=== PATIENT | female | born 1980 | race Caucasian/White ===

== ENCOUNTER 2020-05-16 05:18 | Emergency (ER) | payer OTHER, SELFPAY ==
--- NOTE | ~2020-05-16 | US_ITS ---
EXAMINATION: US OB <=14 wk fetus w TV DATE: 05/16/2020 07:38 INDICATION: Right lower quadrant pain TECHNIQUE: Real-time pelvic transabdominal and transvaginal ultrasound was performed. COMPARISON: None. FINDINGS: The uterus measures 11.2 x 5.4 x 5.6 cm. The endometrial thickness measures 19 mm. No defi nite intrauterine gestational sac is identified. The right ovary measures 5.2 x 3.3 x 3.4 cm. There i s a cystic right adnexal lesion with septation and possible pole. The left ovary measures 3.1 x 2.1 x 1.1 cm. There is normal vascular flow in the ovaries. There is no free fluid in the pelvis. IMPRESSION: 1. Findings suspicious for right adnexal ectopic . YOUTH CARE WORKER evaluation is recommended. These f indings and recommendations were discussed with Dr. Queenie MD in the Emergency Department at 0753 h ours on 05/16/2020. Reviewed, dictated and finalized at location A. IFF DETECTIVE IMPRESSION: 1. Findings suspicious for right adnexal ectopic . YOUTH CARE WORKER evaluation i s recommended. These findings and recommendations were discussed with Dr. Annamaria michel MD in the Emergency Department at 0753 hours on 05/16/2020.
[2020-05-16 05:26] VITALS: BP 128/90; PULSE 80; RESP 16; TEMP 36.6; O2SAT 100
--- NOTE | 2020-05-16 05:31 | ED.PREGNANCY ---
HPI - General Chief complaint: Abdominal Pain <Melanie Powell MD - Last Filed: 05/16/20 23:37> Stated complaint: abd pain 6 weeks <Melanie Powell MD - Last Filed: 05/16/20 23:37> Time Seen by Provider: 05/16/20 05:23 <Melanie Powell MD - Last Filed: 05/16/20 23:37> Source: patient <Melanie Powell MD - Last Filed: 05/16/20 23:37> Mode of arrival: ambulatory <Melanie Powell MD - Last Filed: 05/16/20 23:37> Limitations: no limitations <Melanie Powell MD - Last Filed: 05/16/20 23:37> History of Present Illness HPI Narrative: This patient is a 39 year old female approximate 6 weeks GA who presents for evaluation of right lower abdominal pain. She reports she woke up 2 hours ago with right lower abdominal pain. She also reports associated nausea and vomiting. She denies fever, chills or urinary symptoms. She denies vaginal bleeding but she reports she has some pink tinged discharge last night. Her OBGYN is Dr. Serrano. She does note she had a tubal ligation reversal 5 years ago. She took 1 g tylenol prior to arrival <Melanie Powell MD - Last Filed: 05/16/20 23:37> Radiation: pelvis <Melanie Powell MD - Last Filed: 05/16/20 23:37> Relieving factors: none <Melanie Powell MD - Last Filed: 05/16/20 23:37> Exacerbating factors: none <Melanie Powell MD - Last Filed: 05/16/20 23:37> Related Data Allergies/Adverse reactions: Allergies Allergy/AdvReac Type Severity Reaction Status Date / Time No Known Allergies Allergy Unknown Verified 09/15/10 08:44 <Melanie Powell MD - Last Filed: 05/16/20 23:37> Review of Systems Review of Systems: All systems reviewed & are unremarkable except as noted in HPI and below <Melanie Powell MD - Last Filed: 05/16/20 23:37> PMFSH Past Medical History Medical History: Medical History (Updated 05/16/20 @ 09:08 by Alfred Jerome MD) Patient denies medical problems <Melanie Powell MD - Last Filed: 05/16/20 23:37> Surgical History Surgical History: Surgical History (Updated 05/16/20 @ 05:32 by Melanie Powell MD) History of cholecystectomy History of reversal of tubal ligation Hx of appendectomy <Melanie Powell MD - Last Filed: 05/16/20 23:37> Social History Social History: Social History (Updated 05/16/20 @ 05:32 by Melanie Powell MD) Smoking status: Never smoker <eMlanie Powell MD - Last Filed: 05/16/20 23:37> Exam Const: General: alert <Melanie Powell MD - Last Filed: 05/16/20 23:37> Orientation/consciousness: patient oriented x3 <Melanie Powell MD - Last Filed: 05/16/20 23:37> Other: holding right lower abdomen <Melanie Powell MD - Last Filed: 05/16/20 23:37> Eyes: EOM: EOMs intact bilaterally <Melanie Powell MD - Last Filed: 05/16/20 23:37> Resp: Effort & Inspection: normal respiratory effort and no retractions <Melanie Powell MD - Last Filed: 05/16/20 23:37> Auscultation: clear to auscultation bilaterally <Melanie Powell MD - Last Filed: 05/16/20 23:37> Cardio: Rate: regular rate <Melanie Powell MD - Last Filed: 05/16/20 23:37> Rhythm: regular rhythm <Melanie Powell MD - Last Filed: 05/16/20 23:37> Heart sounds: no murmurs <Melanie Powell MD - Last Filed: 05/16/20 23:37> GI: GI Palp: Yes Soft to palpation, Yes Tenderness to palpation present (GI) (RLQ) and No Guarding due to palpation present (GI) <Melanie Powell MD - Last Filed: 05/16/20 23:37> Auscultation: normal bowel sounds <Melanie Powell MD - Last Filed: 05/16/20 23:37> Skin: General skin exam: normal color <Melanie Powell MD - Last Filed: 05/16/20 23:37> Rashes: no rashes <Melanie Powell MD - Last Filed: 05/16/20 23:37> Neuro: General: patient oriented x3 and moves all extremities <Melanie Powell MD - Last Filed: 05/16/20 23:37> Extrem: General: normal to inspection <Melanie Marrero
[2020-05-16 05:49] LABS: Basophils Percent Auto 0.2 % (0.2-1.2); Eosinophils Absolute Auto 0.1 K/mm3 (0-0.3); Eosinophils Percent Auto 1.3 % (0-4.4); Hematocrit 38.3 % (37.0-47.0); Immature Granulocyte Absolute 0.03 K/mm3 (0.00-0.031); Immature Granulocyte Percent A 0.4 % (0-0.5); Lymphocytes Absolute Auto 1.79 K/mm3 (0.9-3.2); Mean Corpuscular HGB Conc 31.3 g/dl (32-36); Mean Corpuscular Hemoglobin 24.8 pg (26-34); Mean Corpuscular Volume 79.1 fl (80-100); Mean Platelet Volume 10.7 fl (7.4-10.4); Monocytes Absolute Auto 0.5 K/mm3 (0.1-0.6); Monocytes Percent Auto 6.1 % (2.6-8.5); Platelet Count Result 222 k/mm3 (150-375); Red Blood Count 4.84 M/mm3 (4.2-5.4); Red Cell Distribution Width 14.1 % (11.5-14.5); White Blood Count 8.5 K/mm3 (4.5-10.0)
[2020-05-16] MEDS: ONDANSETRON INJ 4 MG/2 ML VIAL IV PUSH (05:50)
[2020-05-16] MEDS: SODIUM CHLORIDE 0.9% IV 1,000 ML 999 ML IV CONT (05:50)
[2020-05-16 06:03] LABS: Alanine Aminotransferase 27 U/L (4-35); Albumin Level 3.8 g/dL (3.5-5.1); Alkaline Phosphatase 59 U/L (38-126); Anion Gap 6 mmol/L (8-16); Aspartate Amino Transferase 22 U/L (14-36); Bilirubin,Total 0.2 mg/dL (0.2-1.3); Blood Urea Nitrogen 8 mg/dL (7-17); Calcium 8.7 mg/dL (8.4-10.2); Carbon Dioxide 24 mmol/L (22-30); Chloride 108 mmol/L (98-107); Estimated CRCL calculation 117 ml/min; Estimated Glomerular Filt Rate > 60; Glucose 99 mg/dL (65-105); Potassium 4.1 mmol/L (3.4-5.0); Sodium 138 mmol/L (137-145)
[2020-05-16 06:15] LABS: Add Urine Microscopic? NO; Appearance Urine Clear (Clear); Bacteria Urine Trace /hpf; Bilirubin Urine Negative (Negative); Blood Urine Negative (Negative); Color Urine Yellow (Yellow); Glucose Urine UA Negative (Negative); Ketones Urine Negative (Negative); Leukocyte Esterase Ur Negative LEU/UL (Negative); Mucus Urine Rare /lpf; Nitrate Urine Negative (Negative); Protein Urine Negative (Negative); RBC Urine 0-2 /hpf (0-2); Specific Grav Ur 1.024 (1.001-1.035); Squamous Epithelial Cell Urine Moderate /hpf (Few); Urobilinogen Urine Negative mg/dL (<2.0); WBC Urine 0-3 /hpf
[2020-05-16 06:49] VITALS: BP 127/74; PULSE 84; RESP 16; O2SAT 100
[2020-05-16 07:49] VITALS: BP 124/64; PULSE 80; RESP 12; O2SAT 99
[2020-05-16] MEDS: METHOTREXATE SODIUM/PF 50 MG/2 ML VIAL 48.5 MG IM ×2 (09:25)
[2020-05-16 09:53] VITALS: BP 120/67; PULSE 78; RESP 12; O2SAT 99
== END 2020-05-16 09:56 | disposition home or self-care (01) ==
PROVIDERS: General Practice; Emergency Provider Emergency Medicine
DX: O00.90 Unspecified ectopic pregnancy without intrauterine pregnancy (principal); Z3A.01 Less than 8 weeks gestation of pregnancy
CPT/HCPCS: 36415; 76801; 76817; 80053; 81003; 84702; 85025; 85461; 96361; 96372; 96374; 99284; J2405; J7030; J9260

== ENCOUNTER 2020-05-18 10:27 | Observation (INO) | payer OTHER, SELFPAY ==
--- NOTE | ~2020-05-18 | US_ITS ---
EXAMINATION: US OB <=14 wk fetus w TV DATE: 05/18/2020 11:40 INDICATION: Pelvic pain. Right ectopic . Methotrexate given. TECHNIQUE: Real-time transabdominal and transvaginal pelvic ultrasound was performed. COMPARISON: Ultrasound 05/16/2020 FINDINGS: TRANSABDOMINAL ULTRASOUND: The uterus measures 10.3 x 5.5 x 6.1 cm. TRANSVAGINAL ULTRASOUND: The endometrial complex measures 18 mm in thickness. Again seen is a [address] in the endometrial complex. The right ovary measures 2.6 x 2.9 x 2.8 cm. There is a 2.4 cm cyst wi th internal hypoechoic mass in right ovary, which may be a hemorrhagic cyst. There is a 3.1 x 2.6 cm mass with 10 mm cystic component in the right adnexa. The left ovary measures 1.0 x 2.9 x 1.9 cm. The re is vascular flow in the ovaries. There is no free fluid in the pelvis. IMPRESSION: 1. Right adnexal mass again seen, which may be an ectopic . Reviewed, dictated and finalized at location A. ULAR ULTRASOUND TECHNICIAN
--- NOTE | ~2020-05-18 | US_ITS ---
EXAMINATION: US pelvic complete w TV DATE: 05/20/2020 07:38 INDICATION: History of ectopic . Methotrexate given. Beta-hCG levels dropped to 132. Comparison:Ultrasound dated 05/18 and 05/16/2020 TECHNIQUE: Multiple transabdominal and endovaginal sonographic images of the pelvis performed. FINDINGS: The uterus measures 12.1 x 5 x 6.1 cm. The endometrial complex measures 1.9 cm. Right adnex al mass reidentified measuring 2.7 x 2.4 x 2.3 cm which has decreased in size from prior studies. Thi s mass measured 4.4 x 3.1 x 2.9 cm on 05/16/2020 and 3.1 x 2.6 x 2.2 cm on 05/18/2020. There is a persi stent 2.6 cm right ovarian cyst. Left ovary is unremarkable.. The right ovary measures 2.7 x 3.2 x 2.9 cm and the left ovary measures 2.6 x 1.7 x 1.8 cm. There ar e small follicles in each ovary. There is no free fluid in the pelvis. IMPRESSION: 1. Decreasing size of right adnexal mass now measuring 2.7 x 2.4 x 2.3 cm, suggesting response to met hotrexate therapy for ectopic . 2: Endometrial thickening measuring 1.9 cm. Reviewed, dictated and finalized at location A. TROMYOGRAPHIC TECHNICIAN IMPRESSION: 1. Decreasing size of right adnexal mass now measuring 2.7 x 2.4 x 2.3 cm, sugg esting response to methotrexate therapy for ectopic . 2: Endometrial thickening measuring 1.9 cm.
[2020-05-18 10:30] VITALS: BP 114/79; PULSE 100; RESP 16; TEMP 36.8; O2SAT 95
[2020-05-18] MEDS: ONDANSETRON INJ 4 MG/2 ML VIAL (11:05)
[2020-05-18 12:19] LABS: Basophils Percent Auto 0.1 % (0.2-1.2); Eosinophils Absolute Auto 0.1 K/mm3 (0-0.3); Eosinophils Percent Auto 0.7 % (0-4.4); Hematocrit 37.7 % (37.0-47.0); Hemoglobin 11.9 g/dL (12.0-15.0); Immature Granulocyte Absolute 0.02 K/mm3 (0.00-0.031); Immature Granulocyte Percent A 0.3 % (0-0.5); Lymphocytes Absolute Auto 0.88 K/mm3 (0.9-3.2); Lymphocytes Percent Auto 11.6 % (18.3-44.2); Mean Corpuscular HGB Conc 31.6 g/dl (32-36); Mean Corpuscular Volume 79.2 fl (80-100); Mean Platelet Volume 10.9 fl (7.4-10.4); Monocytes Absolute Auto 0.3 K/mm3 (0.1-0.6); Neutrophils Absolute Auto 6.3 K/mm3 (1.3-6.7); Neutrophils Percent Auto 83.3 % (45.5-73.1); Platelet Count Result 182 k/mm3 (150-375); Red Blood Count 4.76 M/mm3 (4.2-5.4); Red Cell Distribution Width 14.3 % (11.5-14.5); White Blood Count 7.6 K/mm3 (4.5-10.0)
[2020-05-18] MEDS: SODIUM CHLORIDE 0.9% IV 1,000 ML 999 ML IV CONT (12:21)
[2020-05-18] MEDS: HYDROmorphone HCL INJ (*CRX) 1 MG/ML SYR 0.2 MG IV PUSH (12:22)
--- NOTE | 2020-05-18 12:29 | ED.FEMALEGU ---
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 Patient had a diagnosis of right ectopic May 16, received a methotrexate injection, her pain is getting worse over the last 24 hours since her instructions were pulmonary. Patient denies any nausea, vomiting, diarrhea, constipation, urinary symptoms or vaginal bleeding. Related Data Allergies Allergy/AdvReac Type Severity Reaction Status Date / Time No Known Allergies Allergy Unknown Verified 09/15/10 08:44 Review of Systems Review of Systems: Narrative: CONSTITUTIONAL: Denies fever, chills, or sweats. EYES: Denies visual changes, redness, or discharge. ENT: Denies rhinorrhea, congestion, sore throat, or otalgia. CARDIOVASCULAR: Denies chest pain, palpitations, or edema. RESPIRATORY: Denies cough or dyspnea. GASTROINTESTINAL: Denies abdominal pain, nausea, vomiting, or diarrhea. GENITOURINARY: Denies dysuria or hematuria. SKIN: Denies rash or itching. MUSCULOSKELETAL: Denies back pain, joint pain, or myalgia. NEUROLOGIC: Denies headache, numbness, or weakness. PSYCHIATRIC: Denies anxiety or depression. PMFSH Past Medical History Medical History Patient denies medical problems Surgical History Surgical History History of cholecystectomy History of reversal of tubal ligation Hx of appendectomy Social History Social History Smoking status: Never smoker Exam Narrative: Exam Narrative: General appearance: Well-developed, well-nourished Skin: Normal color Head: Normocephalic, nontraumatic Chest and respiratory: Airway patent, no respiratory distress, no accessory muscle use Heart: Regular rate/rhythm Abdomen: Soft, mild tenderness in the right lower quadrant, no guarding or rebound, no organomegaly, quiet bowel sounds Neurologic: Alert and oriented ?3, WIDE AREA NETWORK ENGINEER is normal as tested, no gross motor deficit Course Course Emergency Course: Improving Reevaluation(s) Reevaluation #1: Patient still in pain, declined to receive any IV pain medication, eventually agreed for small dose of Dilaudid IV. Got better for a while then pain came back again. 0.5 mg of Dilaudid IV ordered. Patient is ready to be admitted for observation Date: 05/18/20 Time: 13:54 Consultations Consultation #1: DR KAUFFMAN. Admit for observation Date: 05/18/20 Time: 13:54 Vital Signs Vital signs: Vital Signs Temperature 36.8 C 05/18/20 10:30 Pulse Rate 100 05/18/20 10:30 Respiratory Rate 16 05/18/20 10:30 Blood Pressure 114/79 05/18/20 10:30 Pulse Oximetry 95 05/18/20 10:30 Temperature 36.8 C 05/18/20 10:30 Pulse Rate 100 05/18/20 10:30 Respiratory Rate 16 05/18/20 10:30 Blood Pressure 114/79 05/18/20 10:30 Pulse Oximetry 95 05/18/20 10:30 MDM - Female Genitourinary MDM Narrative Medical decision making narrative: Ectopic pain related symptom is my concern. Pelvic ultrasound, labs ordered. Further plan to follow Differential Diagnosis Differential diagnosis: Likely other (Ectopic pain, hemorrhage, hematoma) Lab Data Result diagrams: 05/18/20 11:54 Labs: Lab Results 05/18/20 05/18/20 Range/Units 11:54 11:54 WBC 7.6 (4.5-10.0) K/mm3 RBC 4.76 (4.2-5.4) M/mm3 Hgb 11.9 L (12.0-15.0) g/dL Hct 37.7
[2020-05-18 12:34] LABS: Beta HCG Quantitative 248.49 mIU/ML
[2020-05-18] MEDS: HYDROmorphone HCL INJ (*CRX) 1 MG/ML SYR 0.5 MG IV PUSH ×3 (13:56→22:05)
[2020-05-18 14:45] VITALS: BP 111/66; PULSE 96; RESP 16; O2SAT 96
[2020-05-18 15:15] VITALS: BP 117/66; PULSE 87; RESP 16; TEMP 36.7; O2SAT 97
[2020-05-18 15:16] VITALS: BMI 29.9
--- NOTE | 2020-05-18 15:19 | ADMGEN ---
This patient, Charlotte Pa, was admitted to 2 Medical Room 260-. Patient/family oriented to hospital policies and general routines including ID bracelet, bed and alarms, visiting hours, pain management, procedures, bathroom and other care routines, personal items, smoking policy, room service/diet, and visiting hours. Information on how to activate the Rapid Response Team has been discussed. Patient/Family are encouraged to report perceived risks to care and to ask questions if they do not understand what they are told or what they should do.
[2020-05-18] MEDS: SODIUM CHLORIDE 0.9% IV 1,000 ML 125 ML IV CONT ×2 (15:20→23:40)
[2020-05-18 18:00] VITALS: BP 111/61; PULSE 89; RESP 16; TEMP 36.7; O2SAT 97
[2020-05-18] MEDS: ONDANSETRON INJ 4 MG/2 ML VIAL IV PUSH ×2 (18:30→22:10)
[2020-05-18 21:15] VITALS: BP 101/66; PULSE 88; RESP 16; TEMP 37; O2SAT 96
[2020-05-19] VITALS (7 sets, daily range): BP systolic 94–130; BP diastolic 47–82; PULSE 68–83; RESP 16; TEMP 35.9–37; O2SAT 93–98
[2020-05-19] MEDS: HYDROmorphone HCL INJ (*CRX) 1 MG/ML SYR 0.5 MG IV PUSH (03:37)
[2020-05-19] MEDS: ONDANSETRON INJ 4 MG/2 ML VIAL IV PUSH ×4 (03:38→20:56)
[2020-05-19] MEDS: SODIUM CHLORIDE 0.9% IV 1,000 ML 125 ML IV CONT ×3 (06:52→20:51)
--- NOTE | 2020-05-19 07:40 | PM.IMHP ---
H&P: HPI History of Present Illness Date/Time: 05/19/20 07:40 Chief Complaint: ectopic , RLQ pain Narrative: HPI Narrative: Patient is 39 years old with right lower quadrant pain. Patient had a diagnosis of right ectopic May 16, received a methotrexate injection, her pain is getting worse over the last 24 hours Patient denies any nausea, vomiting, diarrhea, constipation, urinary symptoms or vaginal bleeding. Since admission her pain is the same. US showed right adnexal mass, only tiny fluid in uterus, no free fluid or blood in pelvis. Hgb 11.9 Review of Systems Review of Systems: Narrative: Review of Systems Review of Systems: Narrative: CONSTITUTIONAL: Denies fever, chills, or sweats. EYES: Denies visual changes, redness, or discharge. ENT: Denies rhinorrhea, congestion, sore throat, or otalgia. CARDIOVASCULAR: Denies chest pain, palpitations, or edema. RESPIRATORY: Denies cough or dyspnea. GASTROINTESTINAL: pos for abdominal pain, neg nausea, vomiting, or diarrhea. GENITOURINARY: Denies dysuria or hematuria. SKIN: Denies rash or itching. MUSCULOSKELETAL: Denies back pain, joint pain, or myalgia. NEUROLOGIC: Denies headache, numbness, or weakness. PSYCHIATRIC: Denies anxiety or depression. [facility] Past Medical History Medical History Patient denies medical problems Surgical History Surgical History History of cholecystectomy History of reversal of tubal ligation Hx of appendectomy Social History Social History Smoking status: Never smoker Alcohol intake: unknown Substance use: never Gender identity (if verbalized by the patient): Female Sexual Orientation (if Verbalized by the Patient): Straight or Heterosexual Spiritual care concerns: No Meds Home Medications and Allergies Home Medications Medication Instructions Recorded Confirmed Type hydrocodone-acetaminophen [[place]] 1 tablet PO PRN PRN 05/18/20 05/18/20 History ibuprofen 800 mg PO PRN PRN 05/18/20 05/18/20 History Allergies Allergy/AdvReac Type Severity Reaction Status Date / Time No Known Allergies Allergy Unknown Verified 05/18/20 15:18 Vital Signs Vital Signs - 24 hr 05/18/20 10:30 05/18/20 14:45 05/18/20 15:15 Temperature 98.3 F 98.1 F Pulse Rate 100 96 87 Respiratory Rate 16 16 16 Blood Pressure 114/79 111/66 117/66 Pulse Oximetry 95 96 97 05/18/20 18:00 05/18/20 21:15 05/19/20 02:00 Temperature 98.1 F 98.6 F 97.1 F L Pulse Rate 89 88 73 Respiratory Rate 16 16 16 Blood Pressure 111/61 101/66 130/82 Pulse Oximetry 97 96 97 05/19/20 06:00 Temperature 98.6 F Pulse Rate 83 Respiratory Rate 16 Blood Pressure 101/56 L Pulse Oximetry 93 Exam Narrative: Exam Narrative: General appearance: Well-developed, well-nourished Skin: Normal color Head: Normocephalic, nontraumatic Abdomen: Soft, mild tenderness in the right lower quadrant, no guarding or rebound, no organomegaly, Neurologic: Alert and oriented ?3, LEAD BUSINESS SYSTEMS ANALYST is normal as tested, no gross motor deficit Ext: NT, no edema H&P: Results Labs Labs: Short CBC 05/18/20 Range/Units 11:54 WBC 7.6 (4.5-10.0) K/mm3 Hgb 11.9 L (12.0-15.0) g/dL Hct 37.7 (37.0-47.0) % Plt Count 182 (150-375) k/mm3 Assessment and Plan Additional Plan repeat hcg today and friday for response to MTx, though already greatly decreased from friday discussed lab and US results that indicate no rupture of ectopic preg discussed that pain can increase some with mtx will switch to PO pain meds, allow her to eat, and reassess in pm regarding DC home.
[2020-05-19] MEDS: HYDROcodone/acetaminophen (*CRX) 5-325 MG TABLET 1 TAB PO (09:50)
[2020-05-19] MEDS: IBUPROFEN 600 MG TABLET PO (11:37)
[2020-05-19] MEDS: HYDROcodone/acetaminophen (*CRX) 10-325 MG TABLET 1 TAB PO (13:25)
--- NOTE | 2020-05-19 17:22 | PC.NURSE ---
pt attempted to eat light dinner, only able to take 2 bites and had acute nausea, zofran given, will continue to monitor
[2020-05-20] MEDS: IBUPROFEN 600 MG TABLET PO (01:58)
[2020-05-20 02:23] VITALS: BP 121/68; PULSE 79; RESP 16; TEMP 36.3; O2SAT 100
[2020-05-20] MEDS: HYDROcodone/acetaminophen (*CRX) 5-325 MG TABLET 1 TAB PO (03:45)
[2020-05-20] MEDS: SODIUM CHLORIDE 0.9% IV 1,000 ML 125 ML IV CONT (03:45)
[2020-05-20 06:05] LABS: Hematocrit 28.7 % (37.0-47.0)
[2020-05-20 06:40] VITALS: BP 116/64; PULSE 72; RESP 18; TEMP 36.2; O2SAT 97
[2020-05-20 07:19] LABS: SPREG INTERNAL CONTROL Positive; Serum Qual hCG Positive
--- NOTE | 2020-05-20 10:30 | PM.GYNPNOP ---
AMORTIZATION CLERK - A/P Assessment and plan (1) Ectopic : Qualifiers: Intrauterine status: without intrauterine Location of ectopic : abdominal Qualified Code(s): O00.00 - Abdominal without intrauterine Code(s): O00.90 - Unspecified ectopic without intrauterine Status: Acute Assessment and Plan: Patient is a 39-year-old female presented for pelvic pain in the ER. She had an ectopic . She was treated with methotrexate. Her pain persisted after treatment with methotrexate. Subsequently a ultrasound quantitative HCGs were obtained. The ultrasound was strongly indicative of resolution of the . There was no free fluid. The patient appears well and is ready, agrees with discharge. She is given precautions, she has short-term follow-up. Pain medication will be prescribed for pain control home. Time Spent With Patient Time: Total time spent is greater than 50% in coordination of care (as documented) at patient's floor/unit and/or counseling patient: Time with patient: 15 - 25 minutes AMORTIZATION CLERK- PN:Isabel Post-Op Subjective Date/time seen: 05/20/20 10:30 pain persisted in the evening yesterday, no dizziness, no SOB, voiding, ambulating, denies: nausea, vomiting, fever, chills. Exam Const: General: healthy appearing, comfortable and no acute distress Resp: Auscultation: clear to auscultation bilaterally, no rales, no rhonchi and no wheezes Cardio: Rate: regular rate Heart sounds: no click, no murmurs and no rubs GI: Inspection: non-distended Auscultation: normal bowel sounds Extrem: General: normal to inspection, no pedal edema and no calf tenderness AMORTIZATION CLERK - PN: Obj Data Vital Signs Vital Signs: Vital Signs - 24 hr 05/19/20 14:17 05/19/20 15:01 05/19/20 17:54 Temperature 97.0 F L 96.7 F L Pulse Rate 81 81 Respiratory Rate 16 16 Blood Pressure 94/47 L 98/62 L 120/63 Pulse Oximetry 96 98 05/19/20 21:26 05/20/20 02:23 05/20/20 06:40 Temperature 97.2 F L 97.4 F L 97.1 F L Pulse Rate 76 79 72 Respiratory Rate 16 16 18 Blood Pressure 120/69 121/68 116/64 Pulse Oximetry 98 100 97 Intake/Output Intake/Output: Intake & Output 05/17/20 05/18/20 05/19/20 05/20/20 23:59 23:59 23:59 23:59 Intake Total 2100 4130 1350 Output Total 600 1900 1150 Balance 1500 2230 200 Meds/Results Medications: Active Medications Generic Name Dose Route Start Last Admin Trade Name Freq PRN Reason Stop Dose Admin Hydrocodone Bitart/Acetaminophen 1 tab 05/19/20 07:50 05/19/20 13:25 Hydrocodone/Acetaminophen (*Crx) 10-325 Mg Tablet PO 1 tab Q4H PRN Administration Pain Rated 7-10 Hydrocodone Bitart/Acetaminophen 1 tab 05/19/20 07:50 05/20/20 03:45 Hydrocodone/Acetaminophen (*Crx) 5-325 Mg Tablet PO 1 tab Q4H PRN Administration Pain Rated 4-6 Sodium Chloride 1,000 mls @ 125 mls/hr 05/18/20 13:50 05/20/20 03:45 Normal Saline Iv IV CONT 125 mls/hr .Q8H RADHA Administration Ibuprofen 600 mg 05/19/20 07:53 05/20/20 01:58 Ibuprofen 600 Mg Tablet PO 600 mg Q6H PRN Administration Pain Ondansetron HCl 4 mg 05/18/20 13:47 05/19/20 20:56 Ondansetron Inj 4 Mg/2 Ml Vial IV PUSH 4 mg Q4H PRN Administration Nausea Radiology Results: ITS Impressions Obstetrics Ultrasound 05/18/20 11:45 IMPRESSION: 1. Right adnexal mass again seen, which may be an ectopic . Pelvic/Transvag US 05/20/20 08:16 IMPRESSION: 1. Decreasing size of right adnexal mass now measuring 2.7 x 2.4 x 2.3 cm, suggesting response to methotrexate therapy for ectopic . 2: Endometrial thickening measuring 1.9 cm. Labs CBC & Chem 7: 05/20/20 05:46 Labs: Laboratory Results - last 24 hr 05/20/20 05/20/20 05:46 05:46 Hgb 9.0 L Hct 28.7 L Serum HCG, Qual Positive A
--- NOTE | 2020-05-20 10:35 | PM.DS ---
DS: Admitting Diagnosis Admitting Diagnosis Admitting Diagnosis: Pelvic pain DS: Discharge Diagnosis Discharge Diagnosis (1) Ectopic : Qualifiers: Intrauterine status: without intrauterine Location of ectopic : abdominal Qualified Code(s): O00.00 - Abdominal without intrauterine Code(s): O00.90 - Unspecified ectopic without intrauterine Status: Acute DS: Summary Hospital Course Reason for hospitalization: Ectopic Hospital Course: Patient was admitted for ectopic . She was treated with methotrexate. Her pain was managed and she was observed in the hospital for close to 48 hours. Throughout her stay she was afebrile, tolerating p.o., pain was reasonably well controlled, vital signs were stable. Her stay She was discharged home after she was considered to be stable, pain was well controlled, and resolution of the could be determined. Status at Discharge Functional status at discharge: independent ambulation Time Spent with Patient Time attestation: Total time spent providing and/or coordinating discharge services: Time spent: Greater than 30 minutes DS: Data Data Completed and Pending Labs on day of discharge: Labs from last 24 hours 05/20/20 05/20/20 05/20/20 10:22 05:46 05:46 Hgb 9.0 L Hct 28.7 L Serum HCG, Qual Positive A Beta HCG, Quant Pending Discharge Plan Discharge Consulting providers: Bobby Irving Discharging Clinician: Riley Byers Patient Disposition: Home, Self-Care Activity: pelvic rest Diet: regular Patient Instructions: Antibiotic Form, Pain Management (DC) Stand Alone Forms: General Discharge Information Follow-up/Referrals: Riley Byers MD [Physician] - Discharge Medications: New hydrocodone-acetaminophen 5-325 mg tablet 1 - 2 tablet PO Q4H PRN (Reason: pain) Qty: 25 RF: 0 Continued ibuprofen 800 mg tablet 800 mg PO PRN PRN (Reason: Pain) RF: 0 Discontinued hydrocodone-acetaminophen [[place]] 5-325 mg tablet 1 tablet PO PRN PRN (Reason: pain) RF: 0 Date of admission: 05/18/20 13:47 Primary Care Provider: PHYSICIAN,REGULATORY AFFAIRS CONSULTANT Admitting Provider: Riley Byers Attending physician on admission: Riley Byers Condition: Stable
[2020-05-20 10:57] LABS: Beta HCG Quantitative 86.75 mIU/ML
== END 2020-05-20 11:24 | disposition home or self-care (01) ==
LOC: ANHED 13:53 → ANH2MED 14:23
PROVIDERS: Obstetrics & Gynecology; Admitting Provider Obstetrics & Gynecology; Emergency Provider Emergency Medicine; Visit Provider Obstetrics & Gynecology
DX: O00.00 Abdominal pregnancy without intrauterine pregnancy (principal); R10.2 Pelvic and perineal pain; Z90.49 Acquired absence of other specified parts of digestive tract; Z3A.00 Weeks of gestation of pregnancy not specified
CPT/HCPCS: 36415; 76801; 76817; 76830; 76856; 84702; 84703; 85014; 85018; 85025; 96360; 96361; 96365; 96374; 96375; 96376; 99285; A9270; G0378; G0379; J0131; J1170; J2405; J7030

== ENCOUNTER 2020-05-22 16:15 | Outpatient (CLI) | payer OTHER, SELFPAY ==
[2020-05-22 17:01] LABS: Beta HCG Quantitative 39.44 mIU/ML
== END 2020-05-22 16:16 | disposition home or self-care (01) ==
LOC: ANHLAB 16:19
PROVIDERS: Visit Provider Obstetrics & Gynecology
DX: O00.90 Unspecified ectopic pregnancy without intrauterine pregnancy (principal); Z3A.00 Weeks of gestation of pregnancy not specified
CPT/HCPCS: 36415; 84702

== ENCOUNTER 2020-06-02 11:07 | Outpatient (CLI) | payer OTHER, SELFPAY ==
[2020-06-02 12:39] LABS: Beta HCG Quantitative < 2.39 mIU/ML
== END 2020-06-02 11:08 | disposition home or self-care (01) ==
LOC: ANHLAB 11:10
PROVIDERS: Visit Provider Obstetrics & Gynecology
DX: O00.90 Unspecified ectopic pregnancy without intrauterine pregnancy (principal); Z3A.00 Weeks of gestation of pregnancy not specified
CPT/HCPCS: 36415; 84702

== ENCOUNTER 2021-06-22 08:09 | Outpatient (CLI) | payer BC, SELFPAY ==
[2021-06-22 09:40] LABS: Beta HCG Quantitative 93.03 mIU/ML
[2021-06-25 12:53] LABS: Progesterone 48.5 ng/mL (***)
== END 2021-06-22 08:10 | disposition home or self-care (01) ==
DX: N91.2 Amenorrhea, unspecified (principal)
CPT/HCPCS: 36415; 84144; 84702

== ENCOUNTER 2021-06-25 08:14 | Outpatient (CLI) | payer BC, SELFPAY ==
[2021-06-25 09:12] LABS: Beta HCG Quantitative 256.02 mIU/ML
[2021-06-28 05:07] LABS: Progesterone 52.3 ng/mL (***)
== END 2021-06-25 08:15 | disposition home or self-care (01) ==
DX: N91.2 Amenorrhea, unspecified (principal)
CPT/HCPCS: 36415; 84144; 84702

== ENCOUNTER 2021-06-27 08:19 | Outpatient (CLI) | payer BC, SELFPAY ==
[2021-06-30 06:14] LABS: Progesterone 53.5 ng/mL (***)
== END 2021-06-27 08:20 | disposition home or self-care (01) ==
DX: N91.2 Amenorrhea, unspecified (principal)
CPT/HCPCS: 36415; 84144; 84702

== ENCOUNTER 2021-08-23 08:48 | Emergency (ER) | payer BC, SELFPAY ==
[2021-08-23 08:52] VITALS: BP 143/99; PULSE 88; RESP 18; TEMP 36.6; O2SAT 100
[2021-08-23 09:10] LABS: Basophils Percent Auto 0.1 % (0.2-1.2); Eosinophils Absolute Auto 0.1 K/mm3 (0-0.3); Eosinophils Percent Auto 1.6 % (0-4.4); Hematocrit 43.5 % (37.0-47.0); Hemoglobin 14.3 g/dL (12.0-15.0); Immature Granulocyte Absolute 0.02 K/mm3 (0.00-0.031); Immature Granulocyte Percent A 0.3 % (0-0.5); Lymphocytes Percent Auto 18.1 % (18.3-44.2); Mean Corpuscular HGB Conc 32.9 g/dl (32-36); Mean Corpuscular Hemoglobin 28.4 pg (26-34); Mean Corpuscular Volume 86.5 fl (80-100); Mean Platelet Volume 10.6 fl (7.4-10.4); Monocytes Absolute Auto 0.5 K/mm3 (0.1-0.6); Monocytes Percent Auto 6.5 % (2.6-8.5); Neutrophils Absolute Auto 5.7 K/mm3 (1.3-6.7); Neutrophils Percent Auto 73.4 % (45.5-73.1); Platelet Count Result 208 k/mm3 (150-375); Red Blood Count 5.03 M/mm3 (4.2-5.4); White Blood Count 7.7 K/mm3 (4.5-10.0)
[2021-08-23 09:21] LABS: Appearance Urine Turbid (Clear); Bilirubin Urine Negative (Negative); Blood Urine Negative (Negative); Color Urine Yellow (Yellow); Glucose Urine UA Negative (Negative); Ketones Urine Trace mg/dL (Negative); Leukocyte Esterase Ur Negative LEU/UL (Negative); Nitrate Urine Negative (Negative); Protein Urine Negative (Negative); Specific Grav Ur >= 1.030 (1.001-1.035); Urobilinogen Urine 0.2 mg/dL (<2.0); pH Urine 5.5 (5.0-9.0)
[2021-08-23 09:25] LABS: Alanine Aminotransferase 26 U/L (4-35); Albumin Level 3.9 g/dL (3.5-5.1); Alkaline Phosphatase 55 U/L (38-126); Anion Gap 6 mmol/L (8-16); Aspartate Amino Transferase 27 U/L (14-36); Bilirubin,Total 0.2 mg/dL (0.2-1.3); Blood Urea Nitrogen 7 mg/dL (7-17); Calcium 9.2 mg/dL (8.4-10.2); Carbon Dioxide 26 mmol/L (22-30); Chloride 103 mmol/L (98-107); Estimated CRCL calculation 96 ml/min; Estimated Glomerular Filt Rate > 60; Glucose 85 mg/dL (65-110); Lipase 72 U/L (23-300); Potassium 3.8 mmol/L (3.4-5.0); Sodium 135 mmol/L (137-145)
--- NOTE | 2021-08-23 09:26 | ED.NAVMDI ---
HPI - Nausea/Vomiting/Diarrhea General Chief complaint: Nausea/Vomiting/Diarrhea Stated complaint: vomiting, 13 weeks preg Time Seen by Provider: 08/23/21 09:00 Source: patient Mode of arrival: ambulatory Limitations: no limitations History of Present Illness HPI Narrative: 40 y/o female presents to the ER today for nausea and vomiting that started 3 hours ago. She has not had any fever. She says that she is not able to hold anything down. She reports abdominal cramping. No diarrhea. She had normal BM this morning. No back pain. No dysuria or hematuria. No headache or dizziness. She has noted that her blood pressure has been running high since last week. No history of hypertension. I rechecked it while in the room and it was 128/83. No chest pain. No cough or shortness of breath. She is 13 weeks . Related Data Allergies Allergy/AdvReac Type Severity Reaction Status Date / Time No Known Allergies Allergy Unknown Verified 08/23/21 08:52 Review of Systems Constitutional: Constitutional: Denies body ache(s), Denies chills and Denies fever(s) Eyes: Eyes: Reports no additional eye complaints ENT: Denies nasal congestion and Denies sore throat Cardiovascular: Cardiovascular: Denies chest pain Respiratory: Respiratory: Denies chest congestion, Denies cough and Denies wheezing Gastrointestinal: Gastrointestinal: Reports abdominal pain (cramping), Denies diarrhea, Reports nausea and Reports vomiting Genitourinary: Genitourinary: Reports no additional female genitourinary complaints Musculoskeletal: Musculoskeletal: Denies back pain and Denies myalgias Integumentary/Breasts: Skin/Breast: Denies rash Neurologic: Denies dizziness and Denies headache(s) Psychiatric: Psychiatric: Denies anxiety and Denies depression Endocrine: Endocrine: Reports no additional endocrine complaints Hematologic/Lymphatic: Hematologic/Lymphatic: Reports no additional hematologic/lymphatic complaints Allergic/Immunologic: Allergic/Immunologic: Reports no additional allergic/immunologic complaints PMF Past Medical History Medical History Patient denies medical problems Surgical History Surgical History History of cholecystectomy History of reversal of tubal ligation Hx of appendectomy Social History Social History Smoking status: Never smoker Alcohol intake: unknown Substance use: never Gender identity (if verbalized by the patient): Female Sexual Orientation (if Verbalized by the Patient): Straight or Heterosexual Spiritual care concerns: No Exam Const: General: cooperative and healthy appearing Limitations: no limitations HENMT: Head: normal to inspection Mouth: Yes Normal oral and palatal mucosa present Eyes: General: appearance normal, both eyes and all related structures Neck: Neck: normal visual inspection and full ROM Resp: Effort & Inspection: normal respiratory effort Auscultation: clear to auscultation bilaterally GI: Inspection: normal to inspection GI Palp: No abdominal tenderness, Yes Soft to palpation, No Guarding due to palpation present (GI) and Yes No hepatosplenomegaly present Auscultation: normal bowel sounds Back/Spine/Pelvis: Back: no CVA tenderness Skin: General skin exam: normal color Extrem: General: normal to inspection and full ROM Psych: Appearance: grossly normal Course Reevaluation(s) Reevaluation #1: Pt reports that she is feeling much better. Nausea resolved. No vomiting since arrival. Date: 08/23/21 Time: 10:50 Vital Signs Vital signs: Vital Signs Temperature 36.6 C 08/23/21 08:52 Pulse Rate 88 08/23/21 08:52 Respiratory Rate 18 08/23/21 08:52 Blood Pressure 143/99 H 08/23/21 08:52 Pulse Oximetry 100 08/23/21 08:52 Temperature 36.6 C 08/23/21 08:52 Pulse Rate 84
[2021-08-23 09:28] LABS: Add Urine Microscopic? YES; Amorphous Sediment Urine Few; Bacteria Urine 1+ /hpf; Mucus Urine Heavy /lpf; RBC Urine 0-2 /hpf (0-2); Squamous Epithelial Cell Urine Few /hpf (Few)
[2021-08-23] MEDS: SODIUM CHLORIDE 0.9% IV 1,000 ML 999 ML IV CONT (09:37)
[2021-08-23] MEDS: ONDANSETRON INJ 4 MG/2 ML VIAL IV PUSH (09:37)
[2021-08-23 11:01] VITALS: BP 136/84; PULSE 84; RESP 16; O2SAT 99
== END 2021-08-23 11:25 | disposition home or self-care (01) ==
PROVIDERS: Emergency Medicine; Emergency Provider Nurse Practitioner Family; PCP Advanced Practice Midwife
DX: O21.9 Vomiting of pregnancy, unspecified (principal); Z3A.13 13 weeks gestation of pregnancy
CPT/HCPCS: 36415; 80053; 81001; 81025; 83690; 85025; 96374; 99284; J2405; J7030

== ENCOUNTER 2021-11-24 14:32 | Observation (INO) | payer BC, SELFPAY ==
[2021-11-24] VITALS (12 sets, daily range): BP systolic 117–146; BP diastolic 74–94; PULSE 74–94; BMI 33.3
[2021-11-24] MEDS: LACTATED RINGERS 1,000 ML 999 ML (15:17)
[2021-11-24 15:24] LABS: Basophils Percent Auto 0.2 % (0.2-1.2); Eosinophils Absolute Auto 0.1 K/mm3 (0-0.3); Eosinophils Percent Auto 0.7 % (0-4.4); Hematocrit 36.3 % (37.0-47.0); Hemoglobin 11.5 g/dL (12.0-15.0); Immature Granulocyte Absolute 0.04 K/mm3 (0.00-0.031); Immature Granulocyte Percent A 0.4 % (0-0.5); Lymphocytes Absolute Auto 1.48 K/mm3 (0.9-3.2); Lymphocytes Percent Auto 14.6 % (18.3-44.2); Mean Corpuscular HGB Conc 31.7 g/dl (32-36); Mean Corpuscular Volume 88.5 fl (80-100); Mean Platelet Volume 10.5 fl (7.4-10.4); Monocytes Absolute Auto 0.6 K/mm3 (0.1-0.6); Monocytes Percent Auto 6.3 % (2.6-8.5); Neutrophils Absolute Auto 7.9 K/mm3 (1.3-6.7); Neutrophils Percent Auto 77.8 % (45.5-73.1); Platelet Count Result 153 k/mm3 (150-375); Red Cell Distribution Width 14.4 % (11.5-14.5); White Blood Count 10.2 K/mm3 (4.5-10.0)
--- NOTE | 2021-11-24 15:25 | LDADM ---
This patient, Charlotte Pa, was admitted to OB Post 116 on 11/24/21 at 14:32. Plans for labor, pain management and were discussed with patient. Patient/family oriented to hospital policies and general routines including ID bracelet, bed and alarms, visiting hours, pain management, procedures, bathroom and other care routines, personal items, smoking policy, room service/diet and guest tray routines, infant security routines, and visiting hours. Patient/Family are encouraged to report perceived risks to care and to ask questions if they do not understand what they are told or what they should do. See OBIX for further documentation.
[2021-11-24 15:34] LABS: Alanine Aminotransferase 24 U/L (6-35); Albumin Level 3.2 g/dL (3.5-5.1); Alkaline Phosphatase 55 U/L (38-126); Anion Gap 4 mmol/L (8-16); Aspartate Amino Transferase 21 U/L (14-36); Bilirubin,Total 0.2 mg/dL (0.2-1.3); Blood Urea Nitrogen 9 mg/dL (7-17); Calcium 8.7 mg/dL (8.4-10.2); Carbon Dioxide 23 mmol/L (22-30); Chloride 107 mmol/L (98-107); Estimated CRCL calculation 139 ml/min; Estimated Glomerular Filt Rate > 60; Glucose 105 mg/dL (65-110); Potassium 3.6 mmol/L (3.4-5.0); Sodium 134 mmol/L (137-145)
--- NOTE | 2021-12-09 09:09 | PM.OBTRLD ---
OB - Triage/Final Diagnosis Visit Information Comments/Additional reasons for admission: I have assessed the risk for this patient, Charlotte Pa, and determined that she would benefit from observation care. Evaluation Laboratory results: Laboratory Tests 11/24/21 11/24/21 15:09 15:09 WBC 10.2 H RBC 4.10 L Hgb 11.5 L Hct 36.3 L MCV 88.5 MCH 28.0 MCHC 31.7 L RDW 14.4 Plt Count 153 MPV 10.5 H Immature Gran % (Auto) 0.4 Neut % (Auto) 77.8 H Lymph % (Auto) 14.6 L [place] % (Auto) 6.3 Eos % (Auto) 0.7 Baso % (Auto) 0.2 Lymph # (Auto) 1.48 [place] # (Auto) 0.6 Eos # (Auto) 0.1 Baso # (Auto) 0.0 Abs Immat Gran (auto) 0.04 H Absolute Neuts (auto) 7.9 H Absolute Nucleated RBC 0.0 Nucleated RBC % 0.0 Sodium 134 L Potassium 3.6 Chloride 107 Carbon Dioxide 23 Anion Gap 4 L BUN 9 Creatinine 0.50 L Estim Creat Clear Calc 139 Estimated GFR > 60 Glucose 105 Calcium 8.7 Total Bilirubin 0.2 AST 21 ALT 24 Alkaline Phosphatase 55 Total Protein 6.0 L Albumin 3.2 L Final Diagnosis (1) Dizziness: Code(s): R42 - Dizziness and giddiness Status: Acute
== END 2021-11-24 16:27 | disposition home or self-care (01) ==
PROVIDERS: Admitting Provider Obstetrics & Gynecology; PCP Advanced Practice Midwife; Visit Provider Obstetrics & Gynecology
DX: O26.892 Other specified pregnancy related conditions, second trimester (principal); R42 Dizziness and giddiness; Z3A.26 26 weeks gestation of pregnancy
CPT/HCPCS: 36415; 80053; 85025; G0378; G0379; J7120

== ENCOUNTER 2022-02-14 00:01 | Inpatient (IN) | payer BC, MEDICAID, SELFPAY ==
[2022-02-14] VITALS (212 sets, daily range): BP systolic 54–140; BP diastolic 24–108; PULSE 61–202; TEMP 36.3–36.8; O2SAT 90–100; BMI 33.3
--- NOTE | 2022-02-14 00:36 | LDADM ---
This patient, Charlotte Chamorro, was admitted to Labor/Delivery/Recovery 104 on 02/14/22 at 00:01. Plans for labor, pain management and were discussed with patient. Patient/family oriented to hospital policies and general routines including ID bracelet, bed and alarms, visiting hours, pain management, procedures, bathroom and other care routines, personal items, smoking policy, room service/diet and guest tray routines, security routines, and visiting hours. Patient/Family are encouraged to report perceived risks to care and to ask questions if they do not understand what they are told or what they should do. See OBIX for further documentation.
[2022-02-14 00:52] LABS: Basophils Percent Auto 0.2 % (0.2-1.2); Eosinophils Absolute Auto 0.1 K/mm3 (0-0.3); Eosinophils Percent Auto 0.7 % (0-4.4); Hematocrit 36.6 % (37.0-47.0); Hemoglobin 11.8 g/dL (12.0-15.0); Immature Granulocyte Absolute 0.04 K/mm3 (0.00-0.031); Immature Granulocyte Percent A 0.3 % (0-0.5); Lymphocytes Absolute Auto 1.79 K/mm3 (0.9-3.2); Mean Corpuscular HGB Conc 32.2 g/dl (32-36); Mean Corpuscular Hemoglobin 27.8 pg (26-34); Mean Corpuscular Volume 86.1 fl (80-100); Mean Platelet Volume 11.1 fl (7.4-10.4); Monocytes Absolute Auto 0.8 K/mm3 (0.1-0.6); Monocytes Percent Auto 6.8 % (2.6-8.5); Neutrophils Absolute Auto 9.2 K/mm3 (1.3-6.7); Platelet Count Result 154 k/mm3 (150-375); Red Blood Count 4.25 M/mm3 (4.2-5.4); Red Cell Distribution Width 14.2 % (11.5-14.5)
[2022-02-14] MEDS: LACTATED RINGERS 1,000 ML 125 ML IV CONT ×4 (01:05→17:24)
[2022-02-14] MEDS: OXYTOCIN 30 UNITS/NS 500 ML 30 UNITS/500 ML BAG IV CONT ×2 (01:06→23:48)
[2022-02-14] MEDS: AMPICILLIN 2 GM/NS 100 ML 2 GM/100 ML BAG IVPB (01:07)
[2022-02-14] MEDS: FAMOTIDINE 20 MG TABLET PO (02:48)
[2022-02-14] MEDS: fentaNYL CITRATE INJ (*CRX) 100 MCG/2 ML VIAL 50 MCG IV PUSH ×2 (04:02→07:20)
--- NOTE | 2022-02-14 04:35 | WPDANESEPP ---
Anes - Eval Pre Procedure Procedure: Labor epidural Date/Time: 02/14/22 04:35 Surgeon: gudelia Preop Diagnosis: Abd pain with contractions Pre Op Diagnosis: IOL Patient Data Age: 41 Gender: F Height: 1.65 m Weight: 91 kg Last Vital Signs Pulse 83 02/14/22 04:30 BP 122/85 02/14/22 04:30 Pulse Ox 96 02/14/22 01:13 Allergies Allergy/AdvReac Type Severity Reaction Status Date / Time No Known Allergies Allergy Unknown Verified 01/29/22 15:55 Home Medications Medication Instructions Recorded Confirmed Type aspirin 81 mg tablet 81 mg PO DAILY 11/24/21 11/24/21 History levothyroxine 50 mcg tablet 50 mcg PO DAILY 11/24/21 11/24/21 History prenat.vits,dawna,xyd-jfnb-mgsds 1 tablet PO DAILY 11/24/21 11/24/21 History cholecalciferol (vitamin D3) 25 75 mcg PO DAILY 01/29/22 01/29/22 History mcg (1,000 unit) chewable tablet (Vitamin D3) Laboratory Tests 02/14/22 02/14/22 02/14/22 00:46 00:46 00:46 WBC 12.0 K/mm3 H K/mm3 (4.5-10.0) RBC 4.25 M/mm3 M/mm3 (4.2-5.4) Hgb 11.8 g/dL L g/dL (12.0-15.0) Hct 36.6 % L % (37.0-47.0) MCV 86.1 fl fl (80-100) MCH 27.8 pg pg (26-34) MCHC 32.2 g/dl g/dl (32-36) RDW 14.2 % % (11.5-14.5) Plt Count 154 k/mm3 k/mm3 (150-375) MPV 11.1 fl H fl (7.4-10.4) Immature Gran % (Auto) 0.3 % % (0-0.5) Neut % (Auto) 77.0 % H % (45.5-73.1) Lymph % (Auto) 15.0 % L % (18.3-44.2) [place] % (Auto) 6.8 % % (2.6-8.5) Eos % (Auto) 0.7 % % (0-4.4) Baso % (Auto) 0.2 % % (0.2-1.2) Lymph # (Auto) 1.79 K/mm3 K/mm3 (0.9-3.2) [place] # (Auto) 0.8 K/mm3 H K/mm3 (0.1-0.6) Eos # (Auto) 0.1 K/mm3 K/mm3 (0-0.3) Baso # (Auto) 0.0 K/mm3 K/mm3 (0.0-0.1) Abs Immat Gran (auto) 0.04 K/mm3 H K/mm3 (0.00-0.031) Absolute Neuts (auto) 9.2 K/mm3 H K/mm3 (1.3-6.7) Absolute Nucleated RBC 0.0 K/mm3 K/mm3 (0.0-0.012) Nucleated RBC % 0.0 % % (0.0-0.2) RPR Pending Blood Type A Positive Antibody Screen Negative Patient hx anesthesia problems: none Family hx anesthesia problems: none Results Review: All pre-operative results and documents have been reviewed as part of the pre-operative evaluation. [facility] Past Medical History Medical History Hypertension affecting Hypothyroidism MORALES (obstructive sleep apnea) Overweight (BMI 25.0-29.9) Patient denies medical problems and not yet delivered Surgical History Surgical History History of cholecystectomy History of reversal of tubal ligation Hx of appendectomy Family History Family History Mother Cancer Father Chronic obstructive pulmonary disease Other Parents Social History Social History Smoking status: Never smoker Second hand tobacco smoke exposure: No Alcohol intake: unknown Substance use: never Gender identity (if verbalized by the patient): Female Sexual Orientation (if Verbalized by the Patient): Straight or Heterosexual Spiritual care concerns: No Exam Day of Procedure 02/14/22 04:35 Patient weight: overweight Airway: Mallampati scale class II
[2022-02-14] MEDS: AMPICILLIN 1 GM/NS 50 ML 1 GM/50 ML BAG IVPB ×4 (05:07→17:09)
--- NOTE | 2022-02-14 08:39 | WPDOBADMIT ---
Obstetrics - Admit Note Admission Note: record reviewed. No pertinent additions to the history and/or any subsequent changes in the physical findings that are not consistent with the expected course of the were found. IOL, IVF, SVE /-2, AROM large amount of clear odorless fluid anticipate vaginal delivery Additions to the history and/or subsequent changes in the physical findings follow. None.
[2022-02-14 09:02] LABS: Rapid Plasma Reagin Non-Reactive (NonReactive)
[2022-02-14] MEDS: ONDANSETRON INJ 4 MG/2 ML VIAL IV PUSH ×2 (10:20→16:41)
[2022-02-14] MEDS: FAMOTIDINE 20 MG/2 ML VIAL IV PUSH (14:07)
[2022-02-14] MEDS: SODIUM CHLORIDE 0.9% IV 300 ML 600 ML I-UTERINE (17:23)
--- NOTE | 2022-02-14 21:55 | PM.OBPRVD ---
OB - Delivery Note Procedure Delivery date: 02/14/22 Procedure: Events: Chronic Hypertension, Elective Induction of Labor, Positive Group B Strep (GBS) and Other (IVF) Induction method: AROM and Per Pitocin Protocol Delivery monitor: External FHT and Internal Uterine Route of delivery: Episiotomy description: None Laceration Description: None Specimen: Yes Quantitative Blood Loss (ml): 200 Anesthesia type: Epidural Disposition: Floor Baby Date of : 02/14/22 Time of : 21:36 Weeks of gestation at delivery: 38 Infant gender: Female Weight (pounds): 6 Weight (ounces): 4 presentation: vertex position: Right Occiput Anterior Placenta delivery description: Manual Removal Cord Vessel Description: 3 Vessels, Clamped/Cut and Delayed Cord Clamping score one minute: 8 score five minutes: 9 Narrative: mom and baby stable and doing skin to skin
[2022-02-14] MEDS: IBUPROFEN 600 MG TABLET PO (22:11)
[2022-02-15] VITALS (8 sets, daily range): BP systolic 117–144; BP diastolic 73–83; PULSE 89–101; RESP 16–20; TEMP 36.6–36.8; O2SAT 97–100
[2022-02-15] MEDS: BENZOCAINE 20% AER SPR (*SP) 56 GM CAN 1 SPRAY TOPICAL ×2 (00:02→16:27)
[2022-02-15] MEDS: WITCH HAZEL 40 PADS 1 PAD TOPICAL ×2 (00:02→16:27)
--- NOTE | 2022-02-15 00:23 | PC.NURSE ---
Patient transferred to post room #285 per wheelchair from labor and delivery. Support person present. Oriented to unit, room, information board, rooming in, admission packet and security measures. Patient verbalizes understanding.
[2022-02-15] MEDS: ACETAMINOPHEN 325 MG TABLET 650 MG PO (00:55)
--- NOTE | 2022-02-15 02:55 | PC.NURSE ---
Patient's 2nd bag of pitocin was started on OB first floor by the labor and rn delivery and finished infusing at 0255.
[2022-02-15 05:12] LABS: Hematocrit 29.1 % (37.0-47.0); Hemoglobin 9.3 g/dL (12.0-15.0)
--- NOTE | 2022-02-15 07:37 | PM.OBPNVD ---
OB - PN: Subj Subjective Date/time seen: 02/15/22 07:37 s/p vaginal delivery OB - PN: Obj Data Labs CBC & Chem 7: 02/15/22 05:01 Labs: Laboratory Results - last 24 hr 02/14/22 02/15/22 00:46 05:01 Hgb 9.3 L Hct 29.1 L RPR Non-reactive OB - PN A/P Plan day: 1 Plan: routine care Time Spent With Patient Time: Total time spent is greater than 50% in coordination of care (as documented) at patient's floor/unit and/or counseling patient: Review of Systems Review of Systems: All systems reviewed & are unremarkable except as noted in HPI and below Exam Const: General: cooperative, healthy appearing and comfortable
[2022-02-15] MEDS: LEVOTHYROXINE SODIUM 50 MCG TABLET PO (09:04)
[2022-02-15] MEDS: IBUPROFEN 600 MG TABLET PO ×2 (09:05→17:36)
[2022-02-15] MEDS: MULTIVIT/MIN/PREN/FOL AC/IRON TABLET 1 TAB PO (09:05)
[2022-02-15] MEDS: HYDROcodone/acetaminophen (*CRX) 5-325 MG TABLET 1 TAB PO ×3 (09:07→20:01)
[2022-02-15] MEDS: DOCUSATE SODIUM 100 MG CAPSULE PO ×2 (09:07→16:27)
--- NOTE | 2022-02-15 09:15 | WPDANLDPN2 ---
Anes-Prog Note L&D Date/Time: 02/15/22 09:15 Comfortable throughout: labor and delivery Neuraxial method: epidural Epidural/Spinal procedure site: clean & non-tender Neuro status: Neuro function grossly intact. Cardiovascular status: normal Respiratory status: normal Airway patency: baseline Mental status: baseline Post-Op hydration status: normal Vital Signs: Last Vital Signs Temp 36.7 C 02/15/22 00:40 Pulse 89 02/15/22 04:55 Resp 16 02/15/22 04:55 BP 117/73 02/15/22 04:55 Pulse Ox 98 02/14/22 23:41 O2 Del Method Room Air 02/14/22 00:00 Pain score (VAS): 05/14 I/O: Intake & Output 02/14/22 02/15/22 02/15/22 23:59 07:59 15:59 Intake Total 2550 Output Total 115 Balance 2550 -115 Post-procedural complaints: none Patient feedback: Patient satisfied with anesthetic care.
[2022-02-15] MEDS: POLYSACCHARIDE IRON COMPLEX 150 MG CAPSULE PO ×2 (12:30→16:27)
--- NOTE | 2022-02-15 14:14 | PC.NURSE ---
[id number] Introductions were made, then consulted with patient to assess needs related to . Mother led the conversation with her?plans to feed?her infant, the?experience so far, and she had just finished a independently with no discomfort. Infant is content with hands relaxed on mother. Resources provided for inpatient and outpatient services using a resource guide and mom/baby guide. Mother voiced understanding of information and will call if there is a request for assistance. [id number] Mother called out earlier with RN in another patient room stating she was having difficulty waking her infant to breastfeed. When RN entered the room mother was demonstrating effective on the right breast using cross cradle positioning saying, I figured it out . Mother was encouraged. Reported to primary RN.
[2022-02-16] MEDS: HYDROcodone/acetaminophen (*CRX) 5-325 MG TABLET 1 TAB PO (05:42)
[2022-02-16 08:00] VITALS: BP 108/75; PULSE 83; RESP 16; TEMP 36.7; O2SAT 97
--- NOTE | 2022-02-16 08:26 | PM.OBPNVD ---
OB - PN: Subj Subjective Date/time seen: 02/16/22 08:26 Patient comments: no complaints baby status: doing well OB - PN: Obj Data Labs CBC & Chem 7: 02/15/22 05:01 OB - PN A/P Plan day: 2 Plan: routine care and discharge home (F/U in 4 weeks) Time Spent With Patient Time: Total time spent is greater than 50% in coordination of care (as documented) at patient's floor/unit and/or counseling patient: Time with patient: less than 15 minutes Review of Systems Review of Systems: All systems reviewed & are unremarkable except as noted in HPI and below Exam Narrative: Fundus firm and vaginal flow controlled. No lower ext redness, warmth, or edema. Negative homans. Const: General: comfortable Chest: Breast/axilla inspection: normal inspection of the breasts Resp: Effort & Inspection: normal respiratory effort Cardio: Rate: regular rate GI: GI Palp: Yes Soft to palpation Psych: Appearance: grossly normal Affect: normal affect Attitude: cooperative Thought content: Yes Normal thought content present Judgement: Good judgement present (Psych)
--- NOTE | 2022-02-16 08:26 | PM.OBDSVD ---
DS: Admitting Diagnosis Discharge Date 02/16/2022 Admitting Diagnosis Labor OB - DS: Summary OB Procedures : None OB Procedures Intrapartum: Spontaneous Vag Delivery OB Procedures: : None Time Spent with Patient Time attestation: Total time spent providing and/or coordinating discharge services: Exam Narrative: Fundus firm and vaginal flow controlled. No lower ext redness, warmth, or edema. Negative homans. Const: General: comfortable Chest: Breast/axilla inspection: normal inspection of the breasts Resp: Effort & Inspection: normal respiratory effort Cardio: Rate: regular rate GI: GI Palp: Yes Soft to palpation Psych: Appearance: grossly normal Affect: normal affect Attitude: cooperative Thought content: Yes Normal thought content present Judgement: Good judgement present (Psych) DS: Data Data Completed and Pending Pending studies at discharge: Pending at discharge 02/14/22 21:45 Surgical [PTH] Routine Discharge Plan Discharge Discharging Clinician: Radha Valencia Patient Disposition: Home, Self-Care Activity: pelvic rest Diet: as tolerated Patient Instructions: Antibiotic Form Stand Alone Forms: General Discharge Information Follow-up/Referrals: Milagros Serrano CNM [Certified Nurse Telesales Advisor] - Discharge Medications: Continued levothyroxine 50 mcg tablet 50 mcg PO DAILY aspirin 81 mg Tablet 81 mg PO DAILY prenat.vits,dawna,clp-wwut-ebgiu Tablet 1 tablet PO DAILY cholecalciferol (vitamin D3) [Vitamin D3] 25 mcg (1,000 unit) Tablet,Chewable 75 mcg PO DAILY Date of admission: 02/14/22 00:01 Primary Care Provider: PHYSICIAN,FOSTER CARE THERAPIST Admitting Provider: Riley Byers Attending physician on admission: Riley Byers Condition: Stable
[2022-02-16] MEDS: IBUPROFEN 600 MG TABLET PO (10:08)
[2022-02-16] MEDS: POLYSACCHARIDE IRON COMPLEX 150 MG CAPSULE PO (10:08)
[2022-02-16] MEDS: MULTIVIT/MIN/PREN/FOL AC/IRON TABLET 1 TAB PO (10:08)
[2022-02-16] MEDS: DOCUSATE SODIUM 100 MG CAPSULE PO (10:08)
[2022-02-16] MEDS: LEVOTHYROXINE SODIUM 50 MCG TABLET PO (10:08)
[2022-02-19 10:01] VITALS: BP 114/87; PULSE 101; RESP 20; TEMP 36.6; O2SAT 99
== END 2022-02-16 17:11 | disposition home or self-care (01) | DRG 807 ==
LOC: ANHLDR 16:19 → ANHOB2 02-15 00:35
PROVIDERS: Advanced Practice Midwife; Admitting Provider Obstetrics & Gynecology; Visit Provider Obstetrics & Gynecology
DX: O10.92 Unspecified pre-existing hypertension complicating childbirth (principal); Z37.0 Single live birth; O99.824 Streptococcus B carrier state complicating childbirth; O73.0 Retained placenta without hemorrhage; O76 Abnormality in fetal heart rate and rhythm complicating labor and delivery; O69.81X0 Labor and delivery complicated by cord around neck, without compression, not applicable or unspecified; Z3A.38 38 weeks gestation of pregnancy
CPT/HCPCS: 36415; 85014; 85018; 85025; 86592; 86850; 86900; 86901; 88307; A9270; J0290; J2405; J2590; J2795; J3010; J7030; J7120

== ENCOUNTER 2023-08-15 01:19 | Day surgery (SDC) | payer OTHER, SELFPAY ==
[2023-08-11 14:56] VITALS: BMI 36.3
--- NOTE | 2023-08-11 15:00 | PC.NURSE ---
Report to the Outpatient Waiting Room, entrance under the green pavilion located off [facility], at time 0700 on date 08/15/23. Planned Procedure Time: 0900. Time changes happen often and if your time is changed the preop area will call you the afternoon before. - You and your visitor will be asked to self-screen and do not enter if you have any COVID symptoms. - A mask is optional within the hospital at this time. Patients may have clear liquids (water, carbonated beverages, clear teas, apple juice) until 3 hours prior to surgery with a maximum of 20 ounces. - No food from midnight until time of surgery Take the following medications with a SIP of water the morning of surgery: CYCLOBENZAPRINE DO NOT STOP ANY OF YOUR OTHER PRESCRIPTION MEDICATIONS PRIOR TO SURGERY ?EXCEPT THE FOLLOWING Medications to discontinue per physician: N/A Date to take last dose: N/A Please no make-up, nail luxembourger, hairspray, perfume, deodorant, or body powder the day of surgery. No jewelry (including any body piercings) or valuables the day of surgery, leave them at home. Please take a shower or bath the night before, or the morning of, surgery with an antibacterial soap. Wear comfortable, loose fitting clothing. - Jewelry must be removed prior to entering the operating room. Rings and piercings that are not removed may be cut off. - The hospital will not accept responsibility for valuables. - Please leave all valuables, including medications, at home the day of surgery. If you are going home after surgery, a licensed mobile lounge driver or operator must drive you home. - NO public transportation without another adult if you receive anesthesia. - We recommend that an adult stay with you for 24 hours following discharge. - We also recommend that you do not drive, make important decision, drink alcoholic beverages, or take any drugs that were not prescribed by your health care provider for at least 24 hours after your discharge time. Follow any additional instructions given to you from your surgeon. If you or anyone in your household have experienced Covid symptoms in the past week, please notify your surgeon or the nurse liaison at the phone number below for possible testing. Telephone instructions given to PT - CORTNEY and asked if any additional questions and then verbalized understanding. Patient advised to call surgeon office or pre surgery nurse liaison [phone] if any additional questions.
[2023-08-15 07:15] VITALS: BP 131/80; PULSE 90; RESP 16; TEMP 37.6; O2SAT 97
[2023-08-15] MEDS: ACETAMINOPHEN 500 MG TABLET 1000 MG PO (08:02)
[2023-08-15] MEDS: LACTATED RINGERS 1,000 ML 30 ML IV CONT (08:10)
--- NOTE | 2023-08-15 08:29 | WPDANESEPPF ---
Anes - Initial Pre Proc Eval Procedure: Operation Date: 08/15/23 08:30 Proposed Procedures p Hysteroscopy with Ivet Endometrial Ablation - Riley Byers MD Date/Time: 08/15/23 08:29 Surgeon: Riley Byers MD Pre Op Diagnosis: menorrhagia Patient Data Age: 42 Gender: F Height: 1.65 m Weight: 98.9 kg Allergies Allergy/AdvReac Type Severity Reaction Status Date / Time No Known Allergies Allergy Unknown Verified 08/11/23 14:55 Home Medications Medication Instructions Recorded Confirmed Type cyclobenzaprine 10 mg tablet 10 mg PO PRN PRN Restless Leg(S) 08/11/23 08/15/23 History Patient hx anesthesia problems: none Family hx anesthesia problems: none Results Review: All pre-operative results and documents have been reviewed as part of the pre-operative evaluation. [facility] Past Medical History Medical History Hypertension affecting Hypothyroidism MORALES (obstructive sleep apnea) Overweight (BMI 25.0-29.9) Patient denies medical problems and not yet delivered Surgical History Surgical History History of cholecystectomy History of reversal of tubal ligation Hx of appendectomy Family History Family History Mother Cancer Father Chronic obstructive pulmonary disease Other Parents Social History Social History Smoking status: Never smoker Second hand tobacco smoke exposure: No Alcohol intake: never Substance use: never Substance use type: does not use Living arrangements: with family Gender identity (if verbalized by the patient): Female Sexual Orientation (if Verbalized by the Patient): Straight or Heterosexual Spiritual care concerns: No Anes - Eval Final PreProcedure Day of Procedure 08/15/23 08:29 Patient weight: overweight Heart: regular rate and rhythm Lungs: clear to auscultation Airway: Mallampati scale class II Neurological: alert and oriented Last oral intake: >/= 8 hours ASA classification: II Emergent: no Anesthetic plan: proceed Anesthesia type and monitoring: general LMA and standard monitoring Results Review: All pre-operative results and documents have been reviewed as part of the pre-operative evaluation. Informed Consent: The patient's anesthetic plan and its attendant risks and benefits were discussed with the patient/family/POA. Questions were solicited and answers provided to the satisfaction of the patient/family/POA.
--- NOTE | 2023-08-15 08:35 | PM.IMHP ---
H&P: HPI History of Present Illness Date/Time: 08/15/23 08:35 Chief Complaint: Menorrhagia Narrative: this patient is 42-year-old female with severe menorrhagia. We have agreed to perform endometrial ablation. She understands the procedure. Has been explained her in detail. She understands the risk. She understands result in hospitalization, more surgery, and severe illness. She understands there is risk of hemorrhage infection. She denies any nausea, vomiting, fever, chills. She denies any chest pain shortness of breath. Review of Systems Review of Systems: All systems reviewed & are unremarkable except as noted in HPI and below Constitutional: Constitutional: Denies chills, Denies fatigue, Denies fever(s) and Denies weakness Eyes: Eyes: Denies blurry vision, Denies change in vision, Denies loss of peripheral vision, Denies loss of vision, Denies other visual disturbances and Denies eye pain ENT: Denies vertigo, Denies dizziness, Denies hearing loss, Denies mouth pain, Denies nasal obstruction, Denies neck mass and Denies neck pain Cardiovascular: Cardiovascular: Denies chest pain, Denies diaphoresis, Denies syncope, Denies leg edema and Denies dyspnea Respiratory: Respiratory: Denies chest congestion, Denies cough, Denies hemoptysis, Denies dyspnea and Denies wheezing Gastrointestinal: Gastrointestinal: Denies abdominal pain, Denies constipation, Denies diarrhea, Denies nausea and Denies vomiting Genitourinary: Genitourinary: Denies hematuria, Denies change in libido, Denies nocturia, Denies genital lesions, Denies flank pain and Denies urinary urgency Musculoskeletal: Musculoskeletal: Denies abnormal gait, Denies back pain, Denies myalgias, Denies arthralgias, Denies joint swelling, Denies muscle weakness and Denies neck pain Integumentary/Breasts: Skin/Breast: Denies swelling, Denies breast pain, Denies breast mass, Denies dry skin, Denies nipple discharge, Denies unusual bruising and Denies jaundice Neurologic: Denies Neuro-related abnormal movements, Denies Abnormal speech present, Denies abnormal gait, Denies behavioral changes, Denies confusion, Denies vertigo, Denies dizziness, Denies syncope, Denies loss of vision, Denies memory loss, Denies convulsions and Denies weakness Psychiatric: Psychiatric: Denies abnormal sleep pattern, Denies behavioral changes, Denies change in libido, Denies confusion, Denies depression, Denies anhedonia and Denies memory loss Endocrine: Endocrine: Reports no additional endocrine complaints, Denies change in libido and Denies fatigue Hematologic/Lymphatic: Hematologic/Lymphatic: Reports no additional hematologic/lymphatic complaints Allergic/Immunologic: Allergic/Immunologic: Reports no additional allergic/immunologic complaints and Denies wheezing PMFSH Past Medical History Medical History Hypertension affecting Hypothyroidism MORALES (obstructive sleep apnea) Overweight (BMI 25.0-29.9) Patient denies medical problems and not yet delivered Surgical History Surgical History History of cholecystectomy History of reversal of tubal ligation Hx of appendectomy Family History Family History Mother Cancer Father Chronic obstructive pulmonary disease Other Parents Social History Social History Smoking status: Never smoker Second hand tobacco smoke exposure: No Alcohol intake: never Substance use: never Substance use type: does not use Living arrangements: with family Gender identity (if verbalized by the patient): Female Sexual Orientation (if Verbalized by the Patient): Straight or Heterosexual Spiritual care concerns: No Meds Home Medications and Allergies Home Medications Medication I
--- NOTE | 2023-08-15 08:38 | WPDHPUPDATE1 ---
History and Physical Update Update Date/Time: 08/15/23 08:38 History and Physical has been reviewed, including an updated exam of the patient. There are NO changes in the patient's condition. Risks, benefits, and alternatives have been discussed and questions answered. Patient agrees to proceed with procedure.
[2023-08-15] MEDS: LIDOCAINE HCL 1% LOCAL INJ 10 ML VIAL INFILTRATE (09:02)
[2023-08-15 09:18] VITALS: BP 109/68; PULSE 97; RESP 18; O2SAT 93
--- NOTE | 2023-08-15 09:32 | W.PM.PROC2 ---
Procedure Note - Detailed Date of Procedure 08/15/23 Pre-op Diagnosis menorrhagia Post-op Diagnosis Same Procedure Performed endometrial ablation with hysteroscopy d&c Surgeon Riley Byers MD Anesthesia MAC Indications Severe menorrhagia Findings Normal vulva vagina and cervix. Normal endometrium. Description of Procedure The patient was taken to the operating room. She was prepped and draped in the dorsal lithotomy position after induction of mac anesthesia. A speculum was placed in the vagina. Cervix grasped with a tenaculum. The cervix was dilated to about 1 cm. The hysteroscope was inserted. The above findings were noted. Endometrial curettage was performed with a medium-size curette. All surfaces of the endometrium were affected by the curettage. The specimens were collected and sent to pathology. Measurements were taken of the uterus and cervix. The uterine length was then entered into the hand piece of the Ivet device. The device was inserted into the intrauterine cavity. The array of the device was expanded. The balloon cuff was inflated. A good seal was achieved. The energy and safety cycles were initiated and completed. The array was collapsed and the instrument was withdrawn after deflating the balloon cuff. Hysteroscope was reinserted. Above findings were noted. The hysteroscope was removed. The patient tolerated the procedure well. The speculum and tenaculum were removed. She was taken to recovery in stable condition. Sponge lap and needle counts were correct x2. Estimated Blood Loss 15 Pathology Yes Complications No immediate complications Condition Stable Disposition Same day
[2023-08-15 09:50] VITALS: BP 116/82; PULSE 77; RESP 18
[2023-08-15 10:20] VITALS: BP 115/74; PULSE 74; RESP 16
[2023-08-15 10:50] VITALS: BP 103/58; PULSE 74; RESP 16
[2023-08-15] MEDS: oxyCODONE HCL (*CRX) 5 MG TAB IR PO (10:55)
[2023-08-15 11:18] VITALS: BP 118/71; PULSE 80; RESP 16
== END 2023-08-15 11:39 | disposition home or self-care (01) ==
PROVIDERS: Visit Provider Obstetrics & Gynecology
PROC: 0U5B8ZZ Destruction of Endometrium, Via Natural or Artificial Opening Endoscopic (ICD-10-PCS; CPT 58563; principal; 2023-08-15 08:30)
DX: N92.0 Excessive and frequent menstruation with regular cycle (principal); G47.33 Obstructive sleep apnea (adult) (pediatric)
CPT/HCPCS: 58563; 88305; A9270; J1885; J2250; J2704; J3010; J7120

== ENCOUNTER 2023-11-04 10:37 | Outpatient (CLI) | payer OTHER, SELFPAY | END 2023-11-04 10:38 | disposition home or self-care (01) | PROVIDERS: PCP Nurse Practitioner Family; Visit Provider Obstetrics & Gynecology | DX: N94.6 Dysmenorrhea, unspecified (principal) | CPT/HCPCS: 36415; 86850; 86900; 86901 ==

== ENCOUNTER 2023-11-11 01:40 | Day surgery (SDC) | payer OTHER, SELFPAY ==
[2023-11-04 08:22] VITALS: BMI 32.8
--- NOTE | 2023-11-04 08:28 | PC.NURSE ---
Report to the Outpatient Waiting Room, entrance under the green pavilion located off [facility], at time _0630_ on date _[id number]_. Planned Procedure Time: _0830_. Time changes happen often and if your time is changed the preop area will call you the afternoon before. - You and your visitor will be asked to self-screen and do not enter if you have any COVID symptoms. - A mask is optional within the hospital at this time. Patients may have clear liquids (water, carbonated beverages, clear teas, apple juice) until 3 hours prior to surgery with a maximum of 20 ounces. - No food from midnight until time of surgery Take the following medications with a SIP of water the morning of surgery: ___None DO NOT STOP ANY OF YOUR OTHER PRESCRIPTION MEDICATIONS PRIOR TO SURGERY ?EXCEPT THE FOLLOWING Medications to discontinue per physician None Date to take last dose Please no make-up, nail togolese, hairspray, perfume, deodorant, or body powder the day of surgery. No jewelry (including any body piercings) or valuables the day of surgery, leave them at home. Please take a shower or bath the night before, or the morning of, surgery with an antibacterial soap. Wear comfortable, loose fitting clothing. - Jewelry must be removed prior to entering the operating room. Rings and piercings that are not removed may be cut off. - The hospital will not accept responsibility for valuables. - Please leave all valuables, including medications, at home the day of surgery. If you are going home after surgery, a licensed spotter driver must drive you home. - NO public transportation without another adult if you receive anesthesia. - We recommend that an adult stay with you for 24 hours following discharge. - We also recommend that you do not drive, make important decision, drink alcoholic beverages, or take any drugs that were not prescribed by your health care provider for at least 24 hours after your discharge time. Follow any additional instructions given to you from your surgeon. If you or anyone in your household have experienced Covid symptoms in the past week, please notify your surgeon or the nurse liaison at the phone number below for possible testing. Telephone instructions given to _Teri__and asked if any additional questions and then verbalized understanding. Patient advised to call surgeon office or pre surgery nurse liaison [phone] if any additional questions.
[2023-11-11] VITALS (17 sets, daily range): BP systolic 91–125; BP diastolic 53–82; PULSE 52–90; RESP 12–16; TEMP 35.6–37; O2SAT 94–100
--- NOTE | ~2023-11-11 | CT_ITS ---
EXAMINATION: CTA chest PE protocol DATE: 11/12/2023 18:10 INDICATION: Pulmonary embolism. TECHNIQUE: Computed tomography angiography (CTA) of the chest was performed with 100 mL Omnipaque-350 intravenous contrast timed to evaluate the pulmonary arteries. Coronal maximum intensity projection 3D-reconstructions were created by the technologist. Automated exposure control and iterative reconst ruction technique were employed. The dose-length product was 428.48 mGy-cm. COMPARISON: None. FINDINGS: There is mild atelectasis bilaterally. No pleural effusion. The heart size is normal. No pe ricardial effusion. There is no pulmonary embolus. There are changes of cholecystectomy. There is heath e intraperitoneal gas, consistent with recent surgery. There is mild thoracic spondylosis. IMPRESSION: 1. No pulmonary embolus. Reviewed, dictated and finalized at location E. IMPRESSION: 1. No pulmonary embolus.
--- NOTE | 2023-11-11 06:57 | P.PNAN_ITS ---
Anes - Initial Pre Proc Eval Procedure: Operation Date: 11/11/23 08:30 Proposed Procedures p Total Laparoscopic Assisted Hysterectomy - Haile Byers MD Date/Time: 11/11/23 06:57 Surgeon: Haile Byers MD Pre Op Diagnosis: dysmenorrhea Patient Data Age: 43 Gender: F Height: 1.65 m Weight: 89.5 kg Allergies Allergy/AdvReac Type Severity Reaction Status Date / Time No Known Allergies Allergy Unknown Verified 11/11/23 06:36 Home Medications Medication Instructions Recorded Confirmed Type phentermine 37.5 mg tablet 37.5 mg PO DAILY 11/04/23 11/04/23 History Patient hx anesthesia problems: none Family hx anesthesia problems: none Results Review: All pre-operative results and documents have been reviewed as part of the pre- operative evaluation. [facility]LY [facility] Past Medical History Medical History Hypertension affecting Hypothyroidism MORALES (obstructive sleep apnea) Overweight (BMI 25.0-29.9) Patient denies medical problems and not yet delivered Surgical History Surgical History History of cholecystectomy History of reversal of tubal ligation Hx of appendectomy Family History Family History Mother Cancer Father Chronic obstructive pulmonary disease Other Parents Social History Social History Smoking status: Never smoker Second hand tobacco smoke exposure: No Alcohol intake: never Substance use: never Substance use type: does not use Living arrangements: with family Gender identity (if verbalized by the patient): Female Sexual Orientation (if Verbalized by the Patient): Straight or Heterosexual Spiritual care concerns: No Anes - Eval Final PreProcedure Day of Procedure 11/11/23 06:57 Patient weight: overweight Heart: regular rate and rhythm Lungs: clear to auscultation Airway: Mallampati scale class II Neurological: alert and oriented Last oral intake: >/= 8 hours ASA classification: II Emergent: no Anesthetic plan: proceed Anesthesia type and monitoring: general ETT and standard monitoring Results Review: All pre-operative results and documents have been reviewed as part of the pre- operative evaluation. Informed Consent: The patient's anesthetic plan and its attendant risks and benefits were discussed with the patient/family/POA. Questions were solicited and answers provided to the satisfaction of the patient/family/POA.
[2023-11-11] MEDS: ACETAMINOPHEN 500 MG TABLET 1000 MG PO (07:02)
[2023-11-11] MEDS: LACTATED RINGERS 1,000 ML 30 ML IV CONT ×2 (07:10→10:16)
--- NOTE | 2023-11-11 07:26 | WPDHPUPDATE1 ---
History and Physical Update Update Date/Time: 11/11/23 07:26 History and Physical has been reviewed, including an updated exam of the patient. There are NO changes in the patient's condition. Risks, benefits, and alternatives have been discussed and questions answered. Patient agrees to proceed with procedure.
[2023-11-11] MEDS: KETOROLAC 15 MG/ML VIAL (*BKC) IV PUSH (08:05)
[2023-11-11] MEDS: ceFAZolin 2 GM/D5W 50 ML 2 GM/50 ML BAG IVPB (08:28)
[2023-11-11] MEDS: ceFAZolin SODIUM 1 GM VIAL (09:13)
--- NOTE | 2023-11-11 10:19 | P.OP_ITS ---
Procedure Note - Detailed Date of Procedure 11/11/23 Pre-op Diagnosis dysmenorrhea Post-op Diagnosis Same Procedure Performed total laparoscopic hysterectomy Surgeon Haile Byers MD Anesthesia General Findings Enlarged uterus, 11 cm, left hemipelvis scarring of the peritoneum, normal- appearing ovaries. Description of Procedure This patient was taken to the operating room. She was prepped and draped in the dorsal lithotomy position after induction of general anesthesia. The uterine manipulator and Vanda cup were placed. This was done with a speculum and tenaculum. The speculum was placed. The cervix was grasped with a tenaculum. The stay sutures were placed at 3 and 9:00 a.m.. The stay sutures of 0 Vicryl were brought through the appropriately sized Vanda cup. The tip of the AMA manipulator was placed in the intrauterine cavity. The cup was slid into place around the cervix and into the fornices. It was locked into place. The sutures were then wrapped around the handle and tied under tension. A 5 mm skin incision was made in the left upper quadrant the abdomen. A 5 mm trocar was inserted into the intrauterine cavity under direct visualization of the scope. Pneumoperitoneum was achieved. A left lower quadrant 11 mm incision was made with scalpel. An 11 mm trocar was inserted into the anterior abdominal cavity under direct visualization the scope. A 5 mm infraumbilical incision was made with a scalpel and a 5 mm trocar was inserted the intra-abdominal cavity under direct visualization of the scope. Bilateral ureteral lysis was performed. This was done from the pelvic brim down to the uterine artery. This was done with careful dissection using sharp and blunt dissection. In a stepwise fashion along the lateral aspects of the uterus the Suspensory ligament of the ovary, round ligament and broad ligaments were cauterized transected down to the level of the uterine arteries. A bladder flap was created in the bladder was moved distally to the end of the cervix and over the Vanda cup. The bilateral uterine arteries were cauterized and transected. Colpotomy was then performed. In a circumferential fashion the vagina was transected using unipolar cautery. The incision was made down on the Vanda cup. when the colpotomy was completed, the uterus and cervix were taken out through the vagina. A pneumo occluder was placed in the vagina. The vaginal cuff was closed with a 0 V lock suture in a running fashion. The pelvis was irrigated with copious amounts antibiotic irrigation. The ureters were again examined and found to be intact and flowing freely under the uterine arteries into the bladder. The bladder was intact. It was examined directly. Cystoscopy was performed after administration of methylene blue. The cystoscope was inserted. Bladder was distended with fluid. The ureteric meatus was observed bilaterally. Blue fluid was seen to egress bilaterally. The bladder was drained and the cystoscope was withdrawn. The vagina was irrigated with Betadine solution after removal of the Pneumo occluder. The patient was taken to recovery room. She was stable condition. Sponge lap and needle counts were correct x2. Drains No Packing No Pathology Yes Complications No immediate complications Condition Stable Disposition PACU
[2023-11-11] MEDS: fentaNYL CITRATE INJ (*CRX) 100 MCG/2 ML VIAL 25 MCG IV PUSH ×8 (10:53→11:16)
--- NOTE | 2023-11-11 11:38 | SUR.PHASEI ---
pt still complaining of pain, vitals show she is comfortable, dr st was notified, no orders at this time. pt sent upstairs.
[2023-11-11] MEDS: DEXTROSE 5%/0.45% SOD CHL 1,000 ML 125 ML IV CONT ×2 (11:56→20:22)
[2023-11-11] MEDS: SIMETHICONE 80 MG TAB.CHEW PO (11:59)
[2023-11-11] MEDS: HYDROcodone/acetaminophen (*CRX) 10-325 MG TABLET 1 TAB PO (11:59)
[2023-11-11] MEDS: ONDANSETRON INJ 4 MG/2 ML VIAL IV PUSH (12:56)
[2023-11-11] MEDS: HYDROmorphone HCL INJ (*CRX) 1 MG/ML SYR IV PUSH ×3 (13:10→23:46)
[2023-11-11] MEDS: METOCLOPRAMIDE HCL INJ 10 MG/2 ML VIAL IV PUSH (17:31)
[2023-11-12] MEDS: ONDANSETRON INJ 4 MG/2 ML VIAL IV PUSH (01:16)
[2023-11-12 04:36] VITALS: BP 100/58; PULSE 74; RESP 20; TEMP 36.8; O2SAT 95
[2023-11-12] MEDS: HYDROcodone/acetaminophen (*CRX) 5-325 MG TABLET 1 TAB PO (04:52)
[2023-11-12] MEDS: METOCLOPRAMIDE HCL INJ 10 MG/2 ML VIAL IV PUSH (06:19)
--- NOTE | 2023-11-12 07:17 | PM.GYNPNOP ---
CLOCK MECHANIC - A/P Postoperative Procedures: Procedures Operation Date: 11/11/23 08:30 Actual Procedure Side Surgeon p Total Laparoscopic Assisted Hysterectomy Not Applicable Haile Byers MD Postoperative day: 1 Postoperative status: doing well and other (Tollerating Regular Diet) Postoperative plan: routine post-op care and discharge Time Spent With Patient Time: Total time spent is greater than 50% in coordination of care (as documented) at patient's floor/unit and/or counseling patient: Time with patient: 15 - 25 minutes CLOCK MECHANIC- PN:Subj Post-Op Subjective Date/time seen: 11/12/23 07:17 Subjective: patient reports feeling better, pain is well controlled and patient is tolerating oral intake Exam Const: General: cooperative, healthy appearing, comfortable and no acute distress Resp: Auscultation: no crackles, no rales, no rhonchi and no wheezes Cardio: Rhythm: regular rhythm Heart sounds: no click and no murmurs GI: Inspection: non-distended Auscultation: normal bowel sounds Other: Incisions - CDI Extrem: General: normal to inspection, no pedal edema and no calf tenderness CLOCK MECHANIC - PN: Obj Data Vital Signs Vital Signs: Vital Signs - 24 hr 11/11/23 07:26 11/11/23 10:16 11/11/23 10:30 Temperature 97.1 F L 97 F L Pulse Rate 90 87 73 Respiratory Rate 16 12 13 Blood Pressure 125/82 114/68 118/69 Pulse Oximetry 98 100 100 Oxygen Delivery Room Air Simple Face Mask Simple Face Mask Oxygen Flow Rate 10 10 11/11/23 10:45 11/11/23 11:00 11/11/23 11:15 Temperature Pulse Rate 76 55 L 54 L Respiratory Rate 14 14 14 Blood Pressure 110/67 104/72 100/61 Pulse Oximetry 100 100 99 Oxygen Delivery Room Air Nasal Cannula Nasal Cannula Oxygen Flow Rate 3 3 11/11/23 11:30 11/11/23 11:36 11/11/23 12:05 Temperature 96.9 F L Pulse Rate 54 L 54 L Respiratory Rate 14 12 16 Blood Pressure 100/55 L 109/70 Pulse Oximetry 98 98 98 Oxygen Delivery Nasal Cannula Nasal Cannula Oxygen Flow Rate 3 3 11/11/23 12:21 11/11/23 12:30 11/11/23 12:45 Temperature 96.1 F L 96.7 F L Pulse Rate Respiratory Rate Blood Pressure Pulse Oximetry 98 Oxygen Delivery Nasal Cannula Oxygen Flow Rate 2 11/11/23 13:35 11/11/23 16:24 11/11/23 16:28 Temperature 97.3 F L 97.9 F Pulse Rate 54 L 89 Respiratory Rate 16 16 Blood Pressure 95/61 L 94/53 L Pulse Oximetry 99 94 94 Oxygen Delivery Nasal Cannula Oxygen Flow Rate 2 11/11/23 19:54 11/11/23 19:54 11/11/23 23:33 Temperature 97.7 F 98.6 F Pulse Rate 52 L 52 L 73 Respiratory Rate 14 14 14 Blood Pressure 91/57 L 96/59 L Pulse Oximetry 97 97 95 Oxygen Delivery Nasal Cannula Oxygen Flow Rate 1 11/11/23 23:33 11/12/23 04:36 11/12/23 04:36 Temperature 98.3 F Pulse Rate 52 L 74 74 Respiratory Rate 14 20 20 Blood Pressure 100/58 L Pulse Oximetry 97 95 95 Oxygen Delivery Nasal Cannula Room Air Oxygen Flow Rate 1 Intake/Output Intake/Output: Intake & Output 11/09/23 11/10/23 11/11/23 11/12/23 23:59 23:59 23:59 23:59 Intake Total 1250 1400 Output Total 300 1500 Balance 950 -100 Meds/Results Medications: Active Medications Generic Name Dose Route Start Last Admin Trade Name Freq PRN Reason Stop Dose Admin Hydrocodone Bitart/Acetaminophen 1 tab 11/11/23 11:39 11/12/23 04:52 Hydrocodone/Acetaminophen (*Crx) 5-325 Mg Tablet PO 1 tab Q3H PRN Administration Pain Rated 5 or Less Hydrocodone Bitart/Acetaminophen 1 tab 11/11/23 11:39 11/11/23 11:59 Hydrocodone/Acetaminophen (*Crx) 10-325 Mg Tablet PO 1 tab Q3H PRN Administration Pain Rated 6 or Greater Hydromorphone HCl 1 mg 11/11/23 12:55 11/11/23 23:46 Hydromorphone Hcl Inj (*Crx) 1 Mg/Ml Syr IV PUSH 1 mg Q2H PRN Administration Pain Rated 7-10 Dextrose/Sodium Chloride 1,000 mls @ 125 mls/hr 11/11/23 11:39 11/12/23 04:25 Dextrose 5% Sodium Chloride 0.45% IV CONT Infused .Q8H FOR[facility]LY [facility] [employer]
[2023-11-12] MEDS: SIMETHICONE 80 MG TAB.CHEW PO ×3 (07:27→16:53)
[2023-11-12 08:05] VITALS: BP 92/54; PULSE 75; RESP 16; TEMP 36.9; O2SAT 93
[2023-11-12] MEDS: SCOPOLAMINE 1 MG PATCH 1 PATCH TRANSDERM (08:06)
[2023-11-12] MEDS: HYDROcodone/acetaminophen (*CRX) 10-325 MG TABLET 1 TAB PO ×3 (11:11→21:29)
[2023-11-12] MEDS: IBUPROFEN 600 MG TABLET PO ×2 (12:11→21:29)
--- NOTE | 2023-11-12 14:30 | WPDANESPN ---
Anes - Prog Note Post-Op Date/Time: 11/12/23 14:30 Cardiovascular status: normal Respiratory status: normal Airway patency: baseline Mental status: baseline Post-Op hydration status: normal Vital Signs: Last Vital Signs Temp 98.4 F 11/12/23 08:05 Pulse 75 11/12/23 08:05 Resp 16 11/12/23 08:05 BP 92/54 L 11/12/23 08:05 Pulse Ox 93 11/12/23 08:05 O2 Del Method Room Air 11/12/23 08:25 O2 Flow Rate 1 11/11/23 23:33 Pain Score (VAS): 0/10 I/O: Intake & Output 11/11/23 11/12/23 11/12/23 23:59 07:59 15:59 Intake Total 1000 1400 340 Output Total 200 1500 250 Balance 800 -100 90 Post-procedural complaints: none Patient Feedback: Patient satisfied with anesthetic care.
[2023-11-12 14:50] VITALS: BP 103/71; PULSE 83; RESP 16; TEMP 36.6; O2SAT 93
[2023-11-12 16:40] VITALS: BP 97/56; PULSE 65; RESP 20; TEMP 36.6; O2SAT 90
[2023-11-12 16:41] VITALS: O2SAT 98
[2023-11-12] MEDS: DOCUSATE SODIUM 100 MG CAPSULE PO (16:52)
[2023-11-12 18:05] LABS: Estimated CRCL calculation 98 ml/min; Estimated Glomerular Filt Rate > 60
[2023-11-12 20:42] VITALS: BP 91/46; PULSE 70; RESP 16; RESP 18; TEMP 36.5; O2SAT 99
[2023-11-13 01:08] VITALS: BP 98/49; PULSE 69; RESP 18; TEMP 36.7; O2SAT 98
[2023-11-13] MEDS: SIMETHICONE 80 MG TAB.CHEW PO ×2 (01:12→07:01)
[2023-11-13] MEDS: HYDROcodone/acetaminophen (*CRX) 10-325 MG TABLET 1 TAB PO (07:00)
[2023-11-13] MEDS: IBUPROFEN 600 MG TABLET PO (07:01)
--- NOTE | 2023-11-13 08:28 | PM.GYNPNOP ---
MEMS INTEGRATION ENGINEER - A/P Postoperative Procedures: Procedures Operation Date: 11/11/23 08:30 Actual Procedure Side Surgeon p Total Laparoscopic Assisted Hysterectomy Not Applicable Haile Byers MD Postoperative day: 1 Postoperative status: doing well Postoperative plan: see orders Time Spent With Patient Time: Total time spent is greater than 50% in coordination of care (as documented) at patient's floor/unit and/or counseling patient: Time with patient: 15 - 25 minutes MEMS INTEGRATION ENGINEER- PN:Subj Post-Op Subjective Date/time seen: 11/13/23 08:28 Subjective: patient reports feeling better, patient has no complaints and pain is well controlled Exam Const: General: healthy appearing, comfortable and no acute distress Resp: Auscultation: clear to auscultation bilaterally, no rales, no rhonchi and no wheezes Cardio: Rate: regular rate Heart sounds: no click, no murmurs and no rubs GI: Inspection: non-distended Auscultation: normal bowel sounds Extrem: General: normal to inspection, no pedal edema and no calf tenderness MEMS INTEGRATION ENGINEER - PN: Obj Data Vital Signs Vital Signs: Vital Signs - 24 hr 11/12/23 14:50 11/12/23 16:40 11/12/23 14:50 Temperature 97.9 F 97.8 F Pulse Rate 83 65 Respiratory Rate 16 20 Blood Pressure 103/71 97/56 L Pulse Oximetry 93 90 Oxygen Delivery Room Air Oxygen Flow Rate 11/12/23 16:41 11/12/23 16:40 11/12/23 16:41 Temperature Pulse Rate Respiratory Rate Blood Pressure Pulse Oximetry 98 90 98 Oxygen Delivery Nasal Cannula Room Air Oxygen Flow Rate 2 11/12/23 20:42 11/12/23 20:42 11/13/23 01:08 Temperature 97.7 F 98.0 F Pulse Rate 70 70 69 Respiratory Rate 18 16 18 Blood Pressure 91/46 L 98/49 L Pulse Oximetry 99 99 98 Oxygen Delivery Nasal Cannula Oxygen Flow Rate 2 11/13/23 01:08 11/13/23 07:00 Temperature Pulse Rate 69 Respiratory Rate 18 Blood Pressure Pulse Oximetry 98 Oxygen Delivery Nasal Cannula Room Air Oxygen Flow Rate 1 Intake/Output Intake/Output: Intake & Output 11/10/23 11/11/23 11/12/23 11/13/23 23:59 23:59 23:59 23:59 Intake Total 1250 1740 Output Total 300 1750 Balance 950 -10 Meds/Results Medications: Active Medications Generic Name Dose Route Start Last Admin Trade Name Freq PRN Reason Stop Dose Admin Hydrocodone Bitart/Acetaminophen 1 tab 11/11/23 11:39 11/12/23 04:52 Hydrocodone/Acetaminophen (*Crx) 5-325 Mg Tablet PO 1 tab Q3H PRN Administration Pain Rated 5 or Less Hydrocodone Bitart/Acetaminophen 1 tab 11/11/23 11:39 11/13/23 07:00 Hydrocodone/Acetaminophen (*Crx) 10-325 Mg Tablet PO 1 tab Q3H PRN Administration Pain Rated 6 or Greater Bisacodyl 10 mg 11/12/23 16:22 Bisacodyl 10 Mg Suppository RECTAL ONCE PRN Constipation Docusate Sodium 100 mg 11/12/23 16:21 11/12/23 16:52 Docusate Sodium 100 Mg Capsule PO 100 mg Q12H PRN Administration Constipation Hydromorphone HCl 1 mg 11/11/23 12:55 11/11/23 23:46 Hydromorphone Hcl Inj (*Crx) 1 Mg/Ml Syr IV PUSH 1 mg Q2H PRN Administration Pain Rated 7-10 Ibuprofen 600 mg 11/11/23 11:39 11/13/23 07:01 Ibuprofen 600 Mg Tablet PO 600 mg Q6H PRN Administration Cramping Ketorolac Tromethamine 30 mg 11/11/23 11:39 Ketorolac 30 Mg/Ml Vial (*Bkc) IV PUSH 11/16/23 11:38 Q6H PRN Pain Rated 4-6 Metoclopramide HCl 10 mg 11/11/23 17:27 11/12/23 06:19 Metoclopramide Hcl Inj 10 Mg/2 Ml Vial IV PUSH 10 mg Q6HR PRN Administration Nausea And Vomiting Naloxone HCl 0.1 mg 11/11/23 11:39 Naloxone Hcl 0.4 Mg/Ml Vial IV PUSH Q2M PRN Respiratory rate less than 10 Ondansetron HCl 4 mg 11/11/23 11:39 11/12/23 01:16 Ondansetron Inj 4 Mg/2 Ml Vial IV PUSH 4 mg Q6H PRN Administration Nausea And Vomiting Simethicone 80 mg 11/12/23 16:25 11/13/23 07:01 Simethicone 80 Mg Tab.Chew PO 80 mg Q2HR PRN Administratio
--- NOTE | 2023-11-13 08:30 | PM.DS ---
DS: Admitting Diagnosis Discharge Date November 13, 2023 Admitting Diagnosis menorrhagia DS: Discharge Diagnosis Discharge Diagnosis (1) Menorrhagia: Code(s): N92.0 - Excessive and frequent menstruation with regular cycle Status: Acute (2) Dysmenorrhea: Code(s): N94.6 - Dysmenorrhea, unspecified Status: Acute (3) Post-op pain: Code(s): G89.18 - Other acute postprocedural pain Status: Acute DS: Summary Hospital Course Hospital Course: 43-year-old female with menorrhagia and dysmenorrhea admitted in the hospital for hysterectomy. Hysterectomy was performed. She had higher than normal postoperative pain and required another day of observation. She was discharged home today. After an extra day of pain management. Time Spent with Patient Time attestation: Total time spent providing and/or coordinating discharge services: DS: Data Data Completed and Pending Completed studies during hospitalization: Pending at discharge 11/11/23 10:04 Surgical [PTH] Routine Labs on day of discharge: Labs from last 24 hours 11/12/23 11/12/23 18:03 17:33 BUN Pending Creatinine 0.70 Pending Estim Creat Clear Calc 98 Pending Estimated GFR > 60 Pending Discharge Plan Discharge Patient Disposition: Home, Self-Care Discharge Medications: New oxycodone-acetaminophen 5-325 mg tablet 1 tablet PO Q4H PRN (Reason: pain) Qty: 25 0RF Continued phentermine 37.5 mg tablet 37.5 mg PO DAILY
[2023-11-13 08:50] VITALS: BP 102/62; PULSE 76; RESP 16; TEMP 36.9; O2SAT 96
== END 2023-11-13 10:50 | disposition home or self-care (01) ==
LOC: ANHSURGERY 06:23 → ANHOB2 11:46
PROVIDERS: PCP Nurse Practitioner Family; Visit Provider Obstetrics & Gynecology
PROC: 0UT9FZZ Resection of Uterus, Via Natural or Artificial Opening With Percutaneous Endoscopic Assistance (ICD-10-PCS; CPT 58571; principal; 2023-11-11 08:30)
DX: N88.8 Other specified noninflammatory disorders of cervix uteri (principal); N80.00 Endometriosis of the uterus, unspecified; N80.03 Adenomyosis of the uterus; E03.9 Hypothyroidism, unspecified; F41.9 Anxiety disorder, unspecified; F32.A Depression, unspecified; G47.33 Obstructive sleep apnea (adult) (pediatric); J45.909 Unspecified asthma, uncomplicated; Z98.890 Other specified postprocedural states; Z90.49 Acquired absence of other specified parts of digestive tract; Z80.0 Family history of malignant neoplasm of digestive organs
CPT/HCPCS: 58571; 36415; 71275; 88307; 99199; A9270; J0690; J1100; J1170; J1596; J1885; J2250; J2270; J2405; J2704; J2710; J2765; J3010; J7030; J7120; Q9967; Q9968

== ENCOUNTER 2024-09-20 10:15 | Emergency (ER) | payer OTHER, SELFPAY ==
[2024-09-20 10:32] VITALS: BP 140/85; PULSE 87; RESP 20; TEMP 36.4; O2SAT 100
--- OUTSIDE RECORDS SUMMARY | 2024-09-20 10:46 | XMS_ITS | Continuity of Care Document ---
Author Organization [facility] Address [address] [place] [address] Problems Unknown Problems Results No Results Allergies, adverse reactions, alerts No known allergies and adverse reactions Medications No administered medications reported Vital Signs Date Vital Result Comment 09/04/2024 Body Height [id number] m Body Weight 81.603578283055 kg Body Mass Index 30.9 kg/m2 Social History No smoking Hx information available
--- OUTSIDE RECORDS SUMMARY | 2024-09-20 10:46 | XMS_ITS | Data Portability ---
Author Organization [facility] [place] Address [address] [place] [address] Assessment No assessment recorded. Plan of Treatment Reminders Order Date Submit Date Provider Last Modified By Organization Details Last Modified Time Details Appointments [facility] 2024 09:00A M CINDY NUÑZE NP Not available Not available Not available Lab None recorded. Referral None recorded. Procedures None recorded. Surgeries total laparosco pic hysterect mony (SURG) 2023 024 [facility], [facility] [address], [place], [address], 10/21/2023 09:19:20 Imaging None recorded. Medication Orders clotrimaz ole-betam ethasone 1 %-0.05 % topical cream 2023 024 [id number], [address], [place], [place], [id number], 11/17/2023 12:11:20 Diflucan 150 mg tablet 2023 024 [id number], [address], [place], [place], [id number], 11/17/2023 12:11:19 Patient TargetsNo targets recorded. Patient InstructionsNo instructions recorded. Reason for Referral None Reported. Results Created Date Observation Date Name Description Value Unit Range Abnormal Flag Note LastModifiedBy Organization Detail LastModifiedTime 08/01/19 24 08/01/2023 CULTU RE: URINE result report SEE RESULT S BELOW abnormal Test: Cultu re: Urine Speci men Sourc e: Urine Voide d Speci men Type: Urine Speci men Date: 2023 3:44 PM Resul t Date: 024 1:19 PM Resul t Statu s: Final resul t Abnor mal: Yes Resul li Lab: [facility] [address] [facility] [address] Tel: CULTU RE ----- ----- ----- --- >100, 000 CFU/m l Esche caitlin a coli (Abno rmal) SUSCE PTIBI LITY ----- ----- ----- --- Esche caitlin a coli METHO D OMAR ----- ----- ----- ----- ----- ---- ----- ----- ----- ----- --- AMPIC ILLIN >16 ug/mL Resis tant CEFAZ RONALD <=2 ug/mL Susce ptibl e NITRO FURAN TOIN <=32 ug/mL Susce ptibl e TRIME THOPR IM/ALONSO LFAME THOXA ZOLE >2 ug/mL Resis tant Not Available [facility] (Lab) [address] [facility], [place], [address], 08/04/2023 14:22:58 08/01/19 24 08/01/2023 urina lysis , dipst ick Leukocytes +1 Not Available [facility] [address], [place], [address], 08/01/2023 15:40:52 08/01/19 24 08/01/2023 urina lysis , dipst ick Nitrite normal Not Available [facility] [address], [place], [address], 08/01/2023 15:40:52 08/01/19 24 08/01/2023 urina lysis , dipst ick Urobilinogen normal Not Available [facility] eliecer [address], [place], [address], 08/01/2023 15:40:52 08/01/19 24 08/01/2023 urina lysis , dipst ick Protein trace Not Available [place] [address], [place], [address], 08/01/2023 15:40:52 08/01/19 24 08/01/2023 urina lysis , dipst ick pH 5 Not Available [place] [address], [place], [address], 08/01/2023 15:40:52 08/01/19 24 08/01/2023 urina lysis , dipst ick Specific [place] 1.020 Not Available [facility] robin [address], [place], [address], 08/01/2023 15:40:52 08/01/19 24 08/01/2023 urina lysis , dipst ick Ketone normal Not Available [place] [address], [place], [address], 08/01/2023 15:40:52 08/01/19 24 08/01/2023 urina lysis , dipst ick Bilirubin normal Not Available [facility] [address], [place], [address], 08/01/2023 15:40:52 08/01/19 24 08/01/2023 urina lysis , dipst ick Glucose normal Not Available [place] [address], [place], [address], 08/01/2023 15:40:52 08/01/19 24 08/01/2023 urina lysis , dipst ick Appearance normal Not Available [facility] [address], [place], [address], 08/01/2023 15:40:52 08/01/19 24 08/01/2023 urina lysis , dipst ick Color normal Not Available [place] [address], [place], [address], 08/01/2023 15:40:52 08/01/19 24 08/01/2023 pregn fortunato test, urine HCG negati ve Not Available [place] [address], [place], [address], 08/01/2023 15:40:20 08/01/19 24 08/01/2023 US, pelvi s, compl ete No observ ation record ed. [email or web address] [facility] [address], [place], [address], 08/01/2023 17:45:07 Result Notes None recorded. Problems Name Problem SNOMED Code Status Onset Date Resolution Date Notes Provider Name and Address Organization Details Recorded Time Obesity 932226773 Completed 201405/18/2020 Obesity, unspecif ied;Prac abel ID: 0001 Sheeba max [facility] 14:28:50 Speciali zed medical examinat ion Completed 201405/18/2020 Routine gynecolo gical examinat ion;Prac abel ID: 0001 Sheeba max [facility] 14:28:57 Speciali zed medical examinat ion Completed 201405/18/2020 Other specifie d chlamydi al diseases ;Practic e ID: 0001 Sheeba max [facility] 14:28:59 Venereal disease screenin g Completed 201405/18/2020 Screenin g examinat ion for venereal disease; Practice ID: 0001 Sheeba max [facility] 14:29:00 Screenin g for malignan t neoplasm of cervix Completed 201405/18/2020 Pap Smear;Pr actice ID: 0001 Sheeba max [facility] 14:28:53 Uses combined oral contrace ption 410033491 Completed 201405/18/2020 Encounte r for initial prescrip tion of contrace ptive pills;Pr actice ID: 0001 Sheeba max, [facility] 14:28:47 Pelvic and perineal pain 928857044 Completed 201405/18/2020 Pelvic and perineal pain;Pra ctice ID: 0001 Sheeba max [facility] 14:28:51 Abnormal uterine bleeding [id number] 100 Completed 201705/18/2020 Other specifie d abnormal uterine and vaginal bleeding ;Practic e ID: 0001 Sheeba max [facility] 14:28:45 Pregnanc y test negative 930658335 Completed 201705/18/2020 Encounte r for pregnanc y test, result negative ;Practic e ID: 0001 Sheeba max [facility] 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 14:28:55 Educatio n Completed 201805/18/2020 Encounte r for oth general cnsl and advice on contrace ption;Pr actice ID: 0001 Sheeba max [facility] 14:28:48 Pregnanc y 26853706 Completed 202103/05/2022 Adina Bohnenstie hl null, [facility] 2 16:06:38 Hypothyr oidism 12008284 Active 50mcg synthroi d, TSH q trimests er Adina Bohnenstie hl null, [facility] 2 16:06:28 In vitro fertiliz ation Completed echo on 11/06 WNL, ante testing Adina Bohnenstie hl null, [facility] 2 16:06:28 Hypothyr oidism 74310584 Completed 50mcg synthroi d, TSH q trimests er Adina Bohnenstie hl null, [facility] 2 16:06:28 Advanced maternal age 692760416 Completed Adina Bohnenstie hl null, [facility] 2 16:06:28 Chronic hyperten francisco in obstetri c context 3305881 Completed ASA, growth, ante testing 32w Adina Bohnenstie hl null, [facility] 2 16:06:28 Placenta previa 31330240 Completed now low lying Adina Bohnenstie hl null, [facility] 2 16:06:28 Late entry into care [id number] Completed Adina Bohnenstie hl null, [facility] 2 16:06:28 Low lying placenta 113638515 Completed 1.1cm from os, repeat 35-36w Adina Bohnenstie hl null, [facility] 2 16:06:28 Problem Notes None recorded. Procedures Surgical History Date Name Laterality Status Provider Name and Address Organization Details Recorded Time 11/11/19 24 Total Hysterectomy completed Unique Angela [facility] 11/17/2023 11:35:58 08/15/19 24 hysteroscopy with endometrial ablation completed Mignon Fuentes [facility] 08/22/2023 12:44:00 08/15/19 24 endometrial biopsy completed Unique Angela [facility] 11/04/2023 10:39:22 06/13/19 22 embryo transfer completed [facility] 09/03/2021 15:22:05 05/28/19 22 Date of Last Pap Smear completed [facility] 01/08/2022 16:14:19 05/01/20 21 total excision of bilateral fallopian tubes completed Sheila Haywood [facility] 05/28/2021 10:18:25 05/05/19 17 tuboplasty for sterilization reversal completed [facility] 11/17/2019 12:25:25 05/05/19 06 ligation of bilateral fallopian tubes completed [facility] 09/03/2021 15:20:32 05/05/19 03 cholecystectomy completed [facility] 09/03/2021 15:19:55 05/05/18 97 Appendectomy completed [facility] 09/03/2021 15:20:23 Imaging Results Imaging Date Name Status LastModified by Organiz ation Details LastModified Time 08/01/2023 US, pelvis, complete completed [email or web address] [facility] [address], [place], [address], 08/01/2023 17:45:07 Procedure Notes None recorded. Medical Equipment None Reported. Allergies No known drug allergies Medications Name Sig Start Date Stop Date Status Note LastModified by Organization Details LastModified Time cyclobenz aprine 10 mg tablet 11/03 completed Not Available Not Available Not Available amoxicill in 500 mg capsule TAKE 1 CAPSULE BY MOUTH TWICE DAILY 10/02 completed Not Available Not Available Not Available promethaz ine-DM 6.25 mg-15 mg/5 mL oral syrup 05/18 completed Not Available Not Available Not Available azithromy yobani 250 mg tablet 05/28 completed Not Available Not Available Not Available ibuprofen 800 mg tablet 05/28 completed Not Available Not Available Not Available fluconazo le 150 mg tablet TAKE 1 TABLET BY MOUTH EVERY 48 HOURS active Not Available Not Available No t Available benzonata te 200 mg capsule TAKE 1 CAPSULE BY MOUTH THREE TIMES DAILY 10/02 completed Not Available Not Available Not Available clomiphen e citrate 50 mg tablet Take 3 tablets every day by oral route for 5 days. 05/18 completed Not Available Not Available Not Available hydrocodo ne 5 mg-acetam inophen 325 mg tablet TAKE 1 TABLET BY MOUTH EVERY 4 HOURS NEEDED FOR PAIN 08/01 completed Not Available Not Available Not Available promethaz ine 12.5 mg tablet 08/29 completed Not Available Not Available Not Available phentermi ne 37.5 mg tablet TAKE 1 TABLET BY MOUTH EVERY DAY active Not Available Not Available No t Available acetamino phen 300 mg-codein e 30 mg tablet TAKE 1 TABLET BY MOUTH EVERY 6 HOURS NEEDED FOR PAIN 05/28 completed Not Available Not Available Not Available tramadol 50 mg tablet TAKE 1 TABLET BY MOUTH EVERY 6 HOURS NEEDED FOR PELVIC PAIN 11/03 completed Not Available Not Available Not Available oxycodone -acetamin ophen 5 mg-325 mg tablet TAKE 1 TABLET BY MOUTH EVERY 4 HOURS NEEDED FOR PAIN active Not Available Not Available No t Available progester one 50 mg/mL intramusc ular oil 08/29 completed Not Available Not Available Not Available estradiol valerate 20 mg/mL intramusc ular oil 08/29 completed Not Available Not Available Not Available levothyro xine 50 mcg tablet TAKE 1 TABLET BY MOUTH DAILY 07/31 completed Not Available Not Available Not Available chorionic gonadotro pin, human 10,000 unit IM powder for solution Inject 1 unit by intramus cular route. 05/28 completed Not Available Not Available Not Available clotrimaz ole-betam ethasone 1 %-0.05 % topical cream Apply by topical route for 7 days. active Not Available Not Available No t Available dexametha sone 0.75 mg tablet 08/01 completed Not Available Not Available Not Available betametha sone dipropion ate 0.05 % topical cream Apply by topical route for 7 days. active Not Available Not Available No t Available folic acid 1 mg tablet TAKE 1 TABLET BY MOUTH DAILY 10/02 completed Not Available Not Available Not Available norethind shahriar acetate 1 mg-ethiny l estradiol 20 mcg tablet TAKE 1 TABLET BY MOUTH EVERY DAY 05/28 completed Not Available Not Available Not Available clomipram ine 50 mg capsule take 1 capsule by oral route on days 5 through 9 of cycle 07/16 completed Prescrib ed Dora e: No Locat ion: [facility] odify By: geovani camacho DateTime : 07/16/19 03:30:00 PM Not Available Not Available Not Available diazepam 10 mg tablet TAKE 1 TABET BY MOUTH BEFORE PROCEDUR E 05/28 completed Not Available Not Available Not Available ibuprofen 600 mg tablet TAKE 1 TABLET BY MOUTH EVERY 6 HOURS NEEDED FOR PAIN 08/01 completed Not Available Not Available Not Available methylpre dnisolone 4 mg tablets in a dose pack FOLLOW PACKAGE DIRECTIO NS 10/02 completed Not Available Not Available Not Available albuterol sulfate HFA 90 mcg/actua tion aerosol inhaler INHALE 2 TO 4 PUFFS BY MOUTH EVERY 4 TO 6 HOURS 07/31 completed Not Available Not Available Not Available clotrimaz ole 1 % topical cream APPLY TO THE AFFECTED AND SURROUND ING AREAS OF SKIN BY TOPICAL ROUTE 2 TIMES PER DAY IN THE MORNING AND EVENING active Not Available Not Available No t Available doxycycli ne hyclate 100 mg tablet TAKE 1 TABLET BY MOUTH TWICE DAILY 05/28 completed Not Available Not Available Not Available leuprolid e 1 mg/0.2 mL subcutane ous kit 05/28 completed Not Available Not Available Not Available naproxen 500 mg tablet TAKE 1 TABLET BY MOUTH TWICE DAILY WITH FOOD 07/31 completed Not Available Not Available Not Available diazepam 5 mg tablet TAKE 2 TABLETS BY MOUTH 30 MINUTES PRIOR TO PROCEDUR E 05/28 completed Not Available Not Available Not Available amoxicill in 875 mg-potass ium clavulana te 125 mg tablet 12/13 completed Not Available Not Available Not Available Lexapro 10 mg tablet Take 1 tablet every day by oral route. 07/31 completed Not Available Not Available Not Available ganirelix 250 mcg/0.5 mL subcutane ous syringe 08/29 completed Not Available Not Available Not Available 05/24 (28) 1 mg-20 mcg (21)/75 mg (7) tablet take 1 tablet by oral route every day 06/19 completed Prescrib ramya John e: No Locat ion: Randell jacobson [facility] odify By: gabriella Asif r DateTime : 04/12/20 03:00:00 PM Not Available Not Available Not Available nitrofura ntoin monohydra te/macroc rystals 100 mg capsule Take 1 capsule every 12 hours by oral route for 7 days. 08/05 completed Not Available Not Available Not Available Menopur 75 unit subcutane ous solution 05/28 completed Not Available Not Available Not Available Follistim AQ 900 unit/1.08 mL subcutane ous cartridge 05/28 completed Not Available Not Available Not Available 10/02 completed Not Available Not Available Not Available Isibloom 0.15 mg-0.03 mg tablet TAKE 1 TABLET BY MOUTH ONCE A DAY DIRECTED . TAKE ONLY ACTIVE TABLETS 05/28 completed Not Available Not Available Not Available ID NOW COVID-19 Test Kit TEST DIRECTED TODAY 05/28 completed Not Available Not Available Not Available Afluria Quad 60 mcg (15 mcg x 4)/0.5 mL intramusc ular susp. ADM 0.5ML IM UTD 05/28 completed Not Available Not Available Not Available WesTab Plus 27 mg iron-1 mg tablet TAKE 1 TABLET BY MOUTH DAILY 10/02 completed Not Available Not Available Not Available BinaxNOW COVID-19 Ag Self Test kit TEST DIRECTED TODAY 10/02 completed Not Available Not Available Not Available Vitals Date Recorded Body height Body mass index (BMI) Body weight Systolic blood pressure Diastolic blood pressure Provider Name and Address Organization Details Last Updated DateTime 08/06/2023 163.2 cm 37.1 kg/m2 76991.14 g 128 mm[Hg] 86 mm[Hg] Mignon [facility] 4 16:04:45 Date Recorded Body height Body mass index (BMI) Body weight Systolic blood pressure Diastolic blood pressure Provider Name and Address Organization Details Last Updated DateTime 08/22/2023 163.2 cm 37 kg/m2 22305.26 g 139 mm[Hg] 83 mm[Hg] Mignon [facility] 4 12:43:14 Date Recorded Body height Body mass index (BMI) Body weight Systolic blood pressure Diastolic blood pressure Provider Name and Address Organization Details Last Updated DateTime 10/02/2023 163.2 cm 36.8 kg/m2 95368.95 g 127 mm[Hg] 87 mm[Hg] Юлияkavon Castroen [facility] 4 14:37:24 Date Recorded Body height Body mass index (BMI) Body weight Systolic blood pressure Diastolic blood pressure Provider Name and Address Organization Details Last Updated DateTime 11/04/2023 163.2 cm 34.1 kg/m2 53066.47 g 127 mm[Hg] 84 mm[Hg] [facility] 4 10:35:43 Date Recorded Body height Body mass index (BMI) Body weight Systolic blood pressure Diastolic blood pressure Provider Name and Address Organization Details Last Updated DateTime 11/17/2023 163.2 cm 33.7 kg/m2 33562.29 g 122 mm[Hg] 84 mm[Hg] [facility] 4 11:35:05 Social History Question Answer Notes LastModified by Organizat ion Details LastModified Time Tobacco Smoking Status Never Smoker Audrey max [facility] 09/28/2021 15:14:40 Do You Have An Advance Directive? No [email or web address] Information n ot available 08/01/2021 If You Are , What Was Your Level Of Alcohol Consumption Prior To ? Occasional [email or web address] Information not available 09/28/2021 Are You Blind Or Do You Have Difficulty Seeing? No [email or web address] Information n ot available 08/01/2021 What Is Your Level Of Caffeine Consumption? Occasional [email or web address] Information not available 09/28/2021 How Much Tobacco Do You Chew? None [email or web address] Information not available 09/28/2021 In The 14 Days Before Symptom Onset, Have You Had Close Contact With A Laboratory-confirm ed COVID-19 While That Case Was Ill? No [email or web address] Information n ot available 08/01/2021 In The 14 Days Before Symptom Onset, Have You Had Close Contact With A Person Who Is Under Investigation For COVID-19 While That Person Was Ill? No [email or web address] Information not available 08/01/2021 Have You Been To An Area Known To Be High Risk For COVID-19? No [email or web address] Information not available 08/01/2021 Are You Deaf Or Do You Have Serious Difficulty Hearing? No [email or web address] Information not available 08/01/2021 What Type Of Diet Are You Following? REGULAR [email or web address] Information n ot available 08/01/2021 What Is The Highest Grade Or Level Of School You Have Completed Or The Highest Degree You Have Received? [id number] [email or web address] Information not available 08/01/2021 Are There Any Guns Present In Your Home? No Information not available 08/01/2021 What Was The Date Of Your Most Recent Tobacco Screening? 08/01/2023 [email or web address] Information not available 08/01/2023 Do You Use Protection During Sex? No Information not available 08/01/2021 Do You Use Your Seat Belt Or Car Seat Routinely? Yes Information not available 08/01/2021 Do You Have Smoke And Carbon Monoxide Detectors In Your Home? No [email or web address] Information not available 09/28/2021 How Much Tobacco Do You Smoke? No [email or web address] Information not available 11/17/2019 Do You Use Sunscreen Routinely? No [email or web address] Information not available 08/01/2021 Have You Used IV Drugs? No [email or web address] Information not available 08/01/2021 Do You Have Difficulty Walking Or Climbing Stairs? No [email or web address] Information not available 09/28/2021 Sex: Unknown Functional Status Question Answer Note LastModified by Organizat ion Details LastModified Time Do you use any illicit or recreational drugs? No [email or web address] Information not available 08/01/2021 What is your level of alcohol consumption? None [email or web address] Information not available 08/01/2021 Do you or have you ever used smokeless tobacco? Never used smokeless tobacco [email or web address] Information not available 09/28/2021 Are you able to walk? YESWOREST [email or web address] Information not available 08/01/2021 Are you able to care for yourself? 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 No [email or web address] Information not available 09/28/2021 Do you or have you ever used e-cigarettes or vape? Never used electronic cigarettes Information not available 09/28/2021 What is your exercise level? Occasional [email or web address] Information not available 09/28/2021 Mental Status Question Answer Note LastModified by Organization D etails LastModified Time Do you feel stressed (tense, restless, nervous, or anxious, or unable to sleep at night)? [id number] [email or web address] Information not available 09/28/2021 Family History Relationship Description Onset Age of this Age Resolved Age Notes LastModified by Organization Details LastModified Time Mother Malignant tumor of pancreas [email or web address] Not available 11/16 12:24:01 Father Mild chronic obstructive pulmonary disease [email or web address] Not available 11/16 12:24:20 Medical History Condition Response Allergies (Food, seasonal, environmental ) Y Other N Breast Cancer N Drug/Latex Allergies/Reactions N Blood Transfusion N Dermatologic Disorders N Lung Disease N Defects or Inherited Disease N Breast Problem N Gestational Diabetes N Hematologic disorders N Anesthesia Complications N History of STI N Deep Vein Thrombosis N Polycystic ovary syndrome N Anxiety Disorder Y Autoimmune disease N Arthritis N Infertility Y Polyps N Acid Reflux (GERD) N History of abnormal pap N Cancer N Stroke N Varicosities N Neurologic/Epilepsy N Endometriosis N High Cholesterol N Headaches N Fibromyalgia N Kidney Disease N Heart Problems N Kidney or Bladder Problems N Thyroid Problems Y GI Problems N Eating Disorder N Anemia N Art (IVF or FET) Y Psychiatric Illness N Ovarian Cancer N Diabetes N Pulmonary (TB, Asthma) Y Hepatitis/Liver Disease N No Past Medical History N Eczema N Urinary Tract Infection N Abuse/Domestic Violence N Asthma Y Trauma/Violence N Depression/ depression Y Heart Disease N Pre-Eclampsia N Hypertension N Osteoporosis N Thrombophilias N Gynecological History Statement/Question Response Date of Last Mammogram Date of LMP 08/15/2023 On BCP's at Conception? N N Was last menstrual period normal Y STIs/STDs N HPV Vaccine N Duration of Flow (days) 5 Current Control Method Hysterectom y Frequency of Cycle (Q days) 29 Sexually Active? Y Menses Monthly N Date of DEXA bone scan Age of first menstrual cycle 17 Date of Last Pap Smear 05/28/2021 Sexual Problems? N Desired Control Method Hysterectom y LMP Unknown N Obstetrics History GPAL:G 5 P 4 0 1 4 Type Value Full Term 4 Living 4 Ectopics 1 Total 5 Past Encounters Encounter ID Performer Location Encounter Start Date Encounter Closed Date Diagnosis/Indication Diagnosis SNOMED-CT Code Diagnosis ICD10 Code Diagnosis Note [id number] Milagros Serrano CNM [place] [address] [address] 11/17/2019 11:24:49 11/17/2019 12:46:06 Female infertility 4982474 N97.9 plan clomid and IUI with next cycle, may want HUY referall but not yet Gynecologi c examination 73816800 Z01.419 [id number] Haile Byers MD [facility] [address] [address] 12/13/2019 17:21:41 12/13/2019 17:52:34 Female infertility 5703761 N97.9 [id number] Milagros Serrano CNM [facility] [address] [address] 12/14/2019 11:27:54 12/14/2019 15:06:05 Artificial insemination done 8498313114 94199 Z31.89 Female infertility 27561 08 N97.9 [id number] Lilian Shirley MD [facility] [address] [address] 05/24/2020 16:15:39 05/25/2020 16:14:37 test positive 887365829 Z32.01 Ectopic 358646 09 O00.90 History of tubal ligation 232408513 Z98.51 [id number] Lilian Shirley MD [facility] [address] [address] 05/28/2021 09:50:12 05/30/2021 11:05:47 Fallopian tube excision 658491810 Z40.03 In vitro fertilization 13459436 Z31.83 Trying to conceive 97456 9001 Z31.9 Gynecologi c examination 57634650 Z01.419 Z11.51 [id number] [facility] [address],[facility] [place] [address] [id number]||2024-09-20 11:50:00|XR_ITS|ELZIMMILIZ|Imaging|[id number]|"XR chest 2V Ordering provider: Cindy Bettencourt PA-C History: 43 years Female with . cough . Comparison: None. FINDINGS: MEDIASTINUM: The cardiac silhouette is not enlarged. LUNGS: No infiltrates, effusions or pneumothorax. OTHER: No free air under the diaphragm. IMPRESSION: No acute cardiopulmonary Reviewed, dictated and finalized at location A. IMPRESSION: No acute cardiopulmonary "
--- OUTSIDE RECORDS SUMMARY | 2024-09-20 10:46 | XMS_ITS | Data Portability ---
Author Organization [place] [facility] [employer], Main Office Address [address] [place] [address] Assessment Encounter Date Assessment Date Assessment LastModified by Organization Details LastModified Time 09/14/2024 09/14/2024 45 mintues spent with the patient Labs provided, discussed her use of phentermine and GLP-1 for obesity [email or web address] Not available 09/14/2024 19:40:06 Plan of Treatment Reminders Order Date Submit Date Provider Last Modified By Organization Details Last Modified Time Details Appointments Any 15 2024 04:30P M Ashlee garcía MD Not available Not available Not available Lab lipid panel, serum 2024 025 [facility] Outpatient Lab, [address] [place], [address], 09/15/2024 13:10:16 CMP, serum or plasma 2024 025 [facility] Outpatient Lab, [address] [place], [address], 09/15/2024 13:10:57 CBC w/ auto diff 2024 025 [facility] Outpatient Lab, [address] [place], [address], 09/15/2024 12:44:26 TSH + free T4, serum [email or web address] Outpatient Lab, [address] [place], [address], 09/14/2024 16:42:06 vitamin D, 25-hydrox y, total, serum [address] Outpatient Lab, [address] [place], [address], 09/14/2024 16:42:06 vitamin B12 + folate, serum or blood [address] Outpatient Lab, [address] [place], [address], 09/14/2024 16:42:06 hepatitis C virus Ab, serum 2023 024 [facility] Outpatient Lab, [address] [place], [address], 04/20/2024 09:57:10 hepatitis C Ab, serum 2023 024 [facility] Outpatient Lab, [address] [place], [address], 09/19/2024 04:02:54 CBC w/ auto diff 2023 024 [facility] Outpatient Lab, [address] [place], [address], 09/02/2023 14:41:25 CMP, serum or plasma 2023 024 [facility] Outpatient Lab, [address] [place], [address], 09/02/2023 14:41:25 lipid panel, serum 2023 024 [facility] (Lab), [address] [place], [address], 09/02/2023 14:41:25 TSH + free T4, serum [email or web address] Outpatient Lab, [address] [place], [address], 09/01/2023 12:14:41 vitamin B12 + folate, serum or blood 2023 024 [facility] Outpatient Lab, [address] [place], [address], 03/08/2024 07:35:33 HbA1c (hemoglob in A1c), blood 2023 024 [facility] Outpatient Lab, [address] [place], [address], 03/08/2024 07:35:33 Referral obstetric juan luis and gynecolog ist referral - Please call patient to schedule an appointme nt. Thank you. 2024 025 [facility] Audrey Dash, [address] [facility], [address], [address], Ph [phone] 09/15/2024 09:17:37 pulmonolo gist referral 2023 024 [facility] Virginie Mendoza [employer], [address] [facility], [address], [place], [address], 03/29/2024 07:58:31 Procedures None recorded. Surgeries None recorded. Imaging MAMMO, screening , bilateral - Please call patient to schedule. 2024 025 [facility] ([facility] Call Scheduling), [address] [place], [address], 09/14/2024 17:25:42 MAMMO, screening , digital, bilateral - Please call patient to schedule. [address] (One Call Scheduling), [address] [place], [address], 03/16/2024 09:37:30 MAMMO, screening , bilateral [address] (One Call Scheduling), [address] [place], [address], 06/14/2024 17:17:19 DEXA 2023 024 [facility] (One Call Scheduling), [address] [place], [address], 12/12/2023 14:45:15 CT, abdomen + pelvis, w/wo contrast - approved [id number] 60 09/10/2023 - 09/09/20242023 024 [facility] ([facility] Call Scheduling), [address] [place], [address], 09/15/2023 18:01:09 Medication Orders phentermi ne 37.5 mg tablet 2024 025 [id number], [address], [id number], 09/14/2024 16:32:20 phentermi ne 37.5 mg tablet 2024 025 [facility] #[id number], [address], [place], [address], 09/14/2024 16:34:07 phentermi ne 37.5 mg tablet [address] [facility][id number], [address], [id number], 06/30/2024 12:42:48 phentermi ne 37.5 mg tablet [address] [facility][id number], [address], [id number], 06/30/2024 12:42:48 Patient TargetsNo targets recorded. Patient Instructions Encounter Date Encounter Id Patient Instructions Last Modified By Organization Details Last Modified Time 09/01/2023 [id number] Follow up in [address] abdomen/pelvic due to left pelvic pain. 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 Thank you. Referring Physician: Ashlee Salazar, Internal Medicine, Encounter Date: 09/14/2024 Results Created Date Observation Date Name Description Value Unit Range Abnormal Flag Note LastModifiedBy Organization Detail LastModifiedTime 09/15/1909/11/2023 CT, abdom en + pelvi s, w/wo contr ast No observ ation record ed. [facility] (One Call Scheduling) [address] [place], [address], 09/15/2023 18:01:09 11/14/19 24 11/12/2023 CT, chest , w/ contr ast No observ ation record ed. [facility] (One Call Scheduling) [address] [place], [address], 11/16/2023 09:59:16 12/12/1912/08/2023 DEXA No observ ation record ed. [email or web address] (One Call Scheduling) [address] [place], [address], 12/15/2023 13:52:31 Result Notes None recorded. Problems Name Problem SNOMED Code Status Onset Date Resolution Date Notes Provider Name and Address Organization Details Recorded Time Pain in pelvis 18741124 Active 2023 Anabelle Chase APRN [address], [address], [place], [address], [employer] 4 11:05:16 Obesity 687202631 Active 2023 Anabelle Chase APRN [address], [address], [place], [address], [employer] 4 17:50:03 Screening for osteoporosis Active 2023 Anabelle Chase APRN [address], [address], [place], [address], [employer] 4 14:14:51 Deep breathing 060449296 Active 2023 Anabelle Chase APRN [address], [address], [place], [address], [employer] 4 14:16:55 Conjunctivitis 4377288 Active 2024 Cheryl Andrade Carmen null, [employer] 5 14:01:41 Vitamin D below reference range 446234436 Active 2024 Ashlee garcía MD [address], [address], [place], [address], [employer] 5 16:30:40 Vitamin B12 level below reference range 989464199 Active 2024 Ashlee garcía MD [address], [address], [place], [address], [employer] 5 16:30:48 Body mass index 30+ - obesity 284015095 Active 2024 Ashele garcía MD [address], [address], [place], [address], [employer] 5 16:31:16 Problem Notes None recorded. Procedures Surgical History Date Name Laterality Status Provider Name and Address Organization Details Recorded Time endometrial ablation completed Faustina Tracey MA [facility] [employer] [facility] 09/01/2023 10:51:22 ligation of bilateral fallopian tubes completed LULA Mallory Tyra [facility] 09/01/2023 10:52:46 Appendectomy completed Faustina Tracey MA [facility] 09/01/2023 10:52:57 cholecystectomy completed Faustina Tracey [facility] 09/01/2023 10:53:11 Imaging Results Imaging Date Name Status [facility]Modified by [facility] Details LastModified Time 09/11/2023 CT, abdomen + pelvis, w/wo contrast completed [facility] (One Call Scheduling) [address] [place], [address], 09/15/2023 18:01:09 11/12/2023 CT, chest, w/ contrast completed [address] (One Call Scheduling) [address] [place], [address], 11/16/2023 09:59:16 12/08/2023 DEXA completed [facility] (One Call Scheduling) [address] [place], [address], 12/15/2023 13:52:31 Procedure Notes None recorded. Medical Equipment None Reported. Allergies No known drug allergies Medications Name Sig Start Date Stop Date Status Note LastModified by Organization Details LastModified Time cyclobenzap rine 10 mg tablet 11/30 completed Not Available Not Available Not Available fluconazole 150 mg tablet TAKE 1 TABLET BY MOUTH EVERY 48 HOURS 11/30 completed Not Available Not Available Not Available phentermine 37.5 mg tablet Take 1 tablet every day by oral route as directed for 30 days, for weight loss. 2024 active Not Available Not Available Not Avai lable tramadol 50 mg tablet TAKE 1 TABLET BY MOUTH EVERY 6 HOURS NEEDED FOR PELVIC PAIN 11/30 completed Not Available Not Available Not Available oxycodone-a cetaminophe n 5 mg-325 mg tablet TAKE 1 TABLET BY MOUTH EVERY 4 HOURS NEEDED FOR PAIN 11/30 completed Not Available Not Available Not Available polymyxin B sulfate 10,000 unit-trimet hoprim 1 mg/mL eye drops INSTILL 1-2 DROP(S) INTO AFFECTED EYE(S) BY OPHTHALMI C ROUTE EVERY DAY FOR 5-7 DAYS 09/14 completed Not Available Not Available Not Available betamethaso ne dipropionat e 0.05 % topical cream 02/04 completed Not Available Not Available Not Available clotrimazol e 1 % topical cream 11/30 completed Not Available Not Available Not Available naproxen 500 mg tablet TAKE 1 TABLET BY MOUTH TWICE DAILY WITH FOOD 11/30 completed Not Available Not Available Not Available nitrofurant oin monohydrate /macrocryst als 100 mg capsule TAKE 1 CAPSULE BY MOUTH EVERY 12 HOURS FOR 7 DAYS 11/30 completed Not Available Not Available Not Available oxycodone-a cetaminophe n as needed for pain 08/31 completed Not Available Not Available Not Available cyclobenzap rine (bulk) as needed 08/31 completed Not Available Not Available Not Available Contrave 8 mg-90 mg tablet,exte nded release TAKE 2 TABLETS BY MOUTH TWICE DAILY DIRECTED FOR WEIGHT LOSS 09/14 completed Not Available Not Available Not Available Vitals Date Recorded Body height Body mass index (BMI) Body weight Body temperature Heart rate Oxygen saturation Oxygen saturation in Arterial blood by Pulse oximetry Systolic blood pressure Diastolic blood pressure Provider Name and Address Organization Details Last Updated DateTime 4 165.1 cm 36.1 kg/m2 25029.5 4 g 97.4 [degF] 90 /min 98 % 98 % 120 mm[Hg] 66 mm[Hg] LULA Mallory - [facility] [place] [employer] [facility] 4 10:45:14 Date Recorded Body height Body mass index (BMI) Body weight Body temperature Heart rate Oxygen saturation Oxygen saturation in Arterial blood by Pulse oximetry Systolic blood pressure Diastolic blood pressure Provider Name and Address Organization Details Last Updated DateTime 4 165.1 cm 31.6 kg/m2 72945.5 5 g 97.4 [degF] 102 /min 98 % 98 % 118 mm[Hg] 74 mm[Hg] Louise Rea MA [facility] [employer] [facility] 4 14:00:47 Date Recorded Body height Body mass index (BMI) Body weight Body temperature Heart rate Oxygen saturation Oxygen saturation in Arterial blood by Pulse oximetry Systolic blood pressure Diastolic blood pressure Provider Name and Address Organization Details Last Updated DateTime 4 165.1 cm 30 kg/m2 78077.6 3 g 96.6 [degF] 88 /min 99 % 99 % 114 mm[Hg] 74 mm[Hg] Faustina Tracey MA [facility] [employer] [facility] 4 16:40:41 Date Recorded Body height Body mass index (BMI) Body weight Body temperature Heart rate Oxygen saturation Oxygen saturation in Arterial blood by Pulse oximetry Systolic blood pressure Diastolic blood pressure Provider Name and Address Organization Details Last Updated DateTime 5 165.1 cm 28.6 kg/m2 65208.8 9 g 97.5 [degF] 80 /min 98 % 98 % 118 mm[Hg] 76 mm[Hg] Faustina Tracey MA [facility] [employer] [facility] 5 15:10:29 Date Recorded Body height Body mass index (BMI) Body weight Body temperature Heart rate Oxygen saturation Oxygen saturation in Arterial blood by Pulse oximetry Systolic blood pressure Diastolic blood pressure Provider Name and Address Organization Details Last Updated DateTime 5 165.1 cm 32.4 kg/m2 06651.5 1 g 98 [degF] 82 /min 98 % 98 % 114 mm[Hg] 68 mm[Hg] Faustina Tracey MA [facility] [employer] [facility] 5 15:56:36 Social History Question Answer Notes LastModified by Organizat ion Details LastModified Time Tobacco Smoking Status [facility] [facility] 09/01/2023 10:49:20 What Is Your Level Of Caffeine Consumption? Occasional Information not available 09/01/2023 In The 14 Days Before Symptom Onset, Have You Had Close Contact With A Laboratory-confir med COVID-19 While That Case Was Ill? No Information not available 09/01/2023 In The 14 Days Before Symptom Onset, Have You Had Close Contact With A Person Who Is Under Investigation For COVID-19 While That Person Was Ill? No Information not available 09/01/2023 What Type Of Diet Are You Following? REGULAR Information not available 09/01/2023 Have There Been Any Changes To Your Family Or Social Situation? No Information no t available 09/01/2023 Do You Use Insect Repellent Routinely? No Information not available 09/01/2023 Where Do You Live? SingleLevelHouse Information not available 09/01/2023 What Was The Date Of Your Most Recent Tobacco Screening? 09/14/2024 Information not available 09/14/2024 How Many Children Do You Have? 3 Information not available 09/01/2023 Do You Have Any Pets? Yes Information not available 09/01/2023 What Is Your Relationship Status? Information not available 02/05/2024 Do You Use Your Seat Belt Or Car Seat Routinely? Yes Information not available 09/01/2023 Do You Have Smoke And Carbon Monoxide Detectors In Your Home? Yes Information not available 09/01/2023 Are You Passively Exposed To Smoke? No Information no t available 09/01/2023 Are There Any Smokers In Your House? No Information not available 09/01/2023 Do You Use Sunscreen Routinely? No Information not available 09/01/2023 Have You Recently Traveled Abroad? No Information not available 09/01/2023 Do You Have Any Dietary Restrictions? No Information not available 09/01/2023 Sex: Unknown Functional Status Question Answer Note LastModified by Organizat ion Details LastModified Time Do you use any illicit or recreational drugs? No Information not available 09/01/2023 Do you or have you ever used any other forms of tobacco or nicotine? No Information not available 09/01/2023 What is your level of alcohol consumption? None Information not available 09/01/2023 Are you currently employed? No Information not available 09/01/2023 What is your exercise level? None Information not available 09/01/2023 Mental Status Question Answer Note LastModified by Organization D etails LastModified Time Do you feel stressed (tense, restless, nervous, or anxious, or unable to sleep at night)? [id number] Information not available 09/01/2023 Family History Relationship Description Onset Age of this Age Resolved Age Notes LastModified by Organization Details LastModified Time Mother Malignant tumor of pancreas Not available 2023 16:06:37 Father Chronic obstructive pulmonary disease Not available 2023 16:06:37 Sister Asthma Not available 10/31/2023 16:06:37 Medical History No medical history recorded. Gynecological History Statement/Question Response How many live births 3 Date of Last Pap Current Control Method Tubal Ligat ion Date of Last Colonoscopy Date of Last Mammogram Date of LMP Obstetrics History GPAL:G 5 P 4 0 1 4 Type Value Multiple Births 0 Full Term 4 Induced 0 Spontaneous 0 Premature 0 Living 4 Ectopics 1 Total 5 Immunizations Vaccine Type Date Status Note Provider Nam e and Address Organization Details Recorded Time Influenza, split virus, quadrivalent, preservative 0 completed Anabelle Chase APRN [address], [place] [address], [place], [address], [employer] 10/31/2023 16:06:29 Influenza, split virus, quadrivalent, PF 3 completed Anabelle Chase APRN [address], [place] [address], [place], [address], [employer] 10/31/2023 16:06:29 Influenza, split virus, trivalent, PF 4 completed Anabelle Chase APRN [address], [facility] [address], [place], [address], [employer] 02/09/2024 08:17:27 Past Encounters Encounter ID Performer Location Encounter Start Date Encounter Closed Date Diagnosis/Indication Diagnosis SNOMED-CT Code Diagnosis ICD10 Code Diagnosis Note [id number] Ashlee ornelas MD [facility] [address] [place] [address] 09/01/2023 10:34:36 09/01/2023 12:15:43 Pain in pelvis 14525737 R10.2 Diabetes m ellitus screening 981712387 Z13.1 Hyperlipid emia screening 718268678 Z13.220 Screening for disorder 397947661 Z13.9 Thyroid di sorder screening 555538885 Z13.29 [id number] Ashlee ornelas MD [facility] Internal Med [facility] [address] [place] [address] 12/01/2023 13:47:33 12/01/2023 14:27:54 Screening mammography 93580337 Z12.31 Hepatitis C screening 41 0591666 Z11.59 Deep breathing 790798226 R06.89 Screening for osteoporosis 406064671 Z13.844 [id number] Ashlee ornelas MD [facility] Internal Med [facility] [address] [place] [address] 02/05/2024 16:29:56 02/05/2024 17:05:09 Screening mammography 26171482 Z12.31 Hepatitis C screening 41 9125039 Z11.59 Obesity 040591925 E66.9 Administra tion of influenza vaccine 06342705 Z23 [id number] Ashlee ornelas MD [facility] Internal Med [facility] [address] [place] [address] 05/13/2024 15:01:46 05/13/2024 16:12:09 Obesity 172926740 E66.9 [id number] Ashlee ornelas MD [facility] Internal Med [facility] [address] [place] [address] 09/14/2024 15:31:09 09/14/2024 16:42:17 Screening due 086999972 Z13.9 Mammogram: get this Dexa: 12/08/2023 : Neg WWE: Get this Get yearly flu shot, get tdap if not doneCan do COVID 19 booster RTC in 1 months, do labs, ER if worse, she is very agreeable to this plan of care Screening mammography 24 691119 Z12.31 Gynecologi c examination 27729251 Z01.419 Hyperlipid emia screening 766804645 Z13.220 Vitamin D below reference range 039753634 R79.89 Vitamin B1 2 level below reference range 427234457 R79.89 Body mass index 30+ - obesity 564415346 E66.9 Would like to take phentermin e as she has taken this in the pastShe was given contrave, but this has not helped and she does not want to take thisExplai mayra that since she has taken the phentermin e in the past and she regained all the weight, explained that I would be only able to prescribe this for one monthShe is very agreeable to do so as she will then consider a GLP-1 such as zepbound Health Concerns Section Related Observation LastModified by Organization Detai ls LastModified Time None Recorded Concern Status LastModified by Organization Details LastModified Time None Recorded Advance Directives Directive None Recorded Payers Encounter Date Sequence Insurance Name Policy Number Policy Corrigan Covered Member ID Corrigan Member ID Guarantor Name 09/01/2023 1 [facility] ON OR AFTER 11/02/20 (MEDICAID REPLACEMENT - [place]MO) [place] [id number] [place] L Pedro Pablo 12/01/2023 1 [facility] ON OR AFTER 11/02/20 (MEDICAID REPLACEMENT - [place]MO[place] [id number] Charlotte L Pedro Pablo 02/05/2024 1 [employer] (EPO) [id number] Charlotte L Pedro Pablo [id number] Charlotte L Pedro Pablo 05/13/2024 1 [employer] (EPO) [id number] Charlotte L Pedro Pablo [id number] Charlotte L Pedro Pablo 09/14/2024 1 [employer] (EPO) [id number] Charlotte L Pedro Pablo [id number] Charlotte L Pedro Pablo 09/14/2024 2 [facility] [employer] Charlotte L Pedro Pablo [id number] Charlotte L Pedro Pablo Notes Date Note Type Note Provider Name and Address Organization Details Recorded Time 09/01/2023 text/html Charlotte presents today to establish care as a new patient. She states that she has been having pelvic pain. She states that her OBGYN found a mass in her uterus and she underwent an ablation. Her OBGYN would like to do a hysterectomy. She states that her pain is mostly on the left side, rating a 3 on 1-10 pain scale. She denies pain to the center or right pelvic region. She states that her mother was diagnosed and of pancreatic cancer. Anabelle Chase APRN [address] [facility], [facility] [address], [place], [address], [employer] 09/01/2023 11:15:11 12/01/2023 text/html Charlotte presents today for 3 month follow up for labs and CT scan. She states that she is episodes of deep breathing that she does not initiate on her own. Previous CT scan of abdomen and pelvis reveal scattered osseus, suggesting beginning of osteoporosis. 09/01/2023Charlotte presents today to establish care as a new patient. She states that she has been having pelvic pain. She states that her OBGYN found a mass in her uterus and she underwent an ablation. Her OBGYN would like to do a hysterectomy. She states that her pain is mostly on the left side, rating a 3 on 1-10 pain scale. She denies pain to the center or right pelvic region. She states that her mother was diagnosed and of pancreatic cancer. Anabelle Chase APRN [address] [facility], [facility] [address], [place], [address], [employer] 12/01/2023 14:21:34 02/05/2024 text/html Charlotte presents today for routine check up and medication refill. Charlotte has lost almost 40 pounds since August. Her goal weight is 155-160, she is currently at 180lbs with a BMI of 30. 12/01/2023Charlotte presents today for 3 month follow up for labs and CT scan. She states that she is episodes of deep breathing that she does not initiate on her own. Previous CT scan of abdomen and pelvis reveal scattered osseus, suggesting beginning of osteoporosis. 09/01/2023Charlotte presents today to establish care as a new patient. She states that she has been having pelvic pain. She states that her OBGYN found a mass in her uterus and she underwent an ablation. Her OBGYN would like to do a hysterectomy. She states that her pain is mostly on the left side, rating a 3 on 1-10 pain scale. She denies pain to the center or right pelvic region. She states that her mother was diagnosed and of pancreatic cancer. Anabelle Chase APRN [address], [place], [address], [employer] [facility] [employer] 02/06/2024 18:21:16 05/13/2024 text/html Charlotte presents today for 3 month follow up for phentermine. She states that the phentermine does not help. She feels as if she is at a standing still. 02/05/2024Charlotte presents today for routine check up and medication refill. Charlotte has lost almost 40 pounds since August. Her goal weight is 155-160, she is currently at 180lbs with a BMI of 30. 12/01/2023Charlotte presents today for 3 month follow up for labs and CT scan. She states that she is episodes of deep breathing that she does not initiate on her own. Previous CT scan of abdomen and pelvis reveal scattered osseus, suggesting beginning of osteoporosis. 09/01/2023Charlotte presents today to establish care as a new patient. She states that she has been having pelvic pain. She states that her OBGYN found a mass in her uterus and she underwent an ablation. Her OBGYN would like to do a hysterectomy. She states that her pain is mostly on the left side, rating a 3 on 1-10 pain scale. She denies pain to the center or right pelvic region. She states that her mother was diagnosed and of pancreatic cancer. Anabelle Chase APRN [address], [address], [place], [address], [facility] [employer] 05/13/2024 16:01:01 09/14/2024 text/html OV 09/14/2024:He re to establish care Present Hx:Obesity Here to discuss above as she would like to get on phentermine, she has taken this in the past Ashlee Salazar MD [address], [address], [place], [address], [place] [facility] 09/14/2024 19:42:08 OBGyn Episode No OBEpisode recorded.
--- OUTSIDE RECORDS SUMMARY | 2024-09-20 10:46 | XMS_ITS | Clinical Summary ---
Author Organization [facility] [employer] Address [address] [place] [address] Care Team Providers Care Unscrambler Name Role Phone Unavailable Primary Care Provider Unavailabl e Source Comments [facility] [employer],non-owned Affiliates and Associated Physician Practices is amultiple site organization consisting of ambulatory clinics and hospital sitesin [place], [place], [place] and [place]. This disclosure is being madepursuant to the Care Everywhere program and may not contain all information available regarding this patient. Last updated 18.[facility] [employer] Allergies No known active allergies Medications * Be aware that medications may not be up to date on this document. Alwaysverify current medications with the patient. Vit-Fe Fumarate-FA ( VITAMINS PO) Active oxyCODONE-acetam inophen (PERCOCET) 5-325 MG tablet Take 1 (one) tablet by mouth every 6 hours as needed for Pain 30 tablet 04/26/2021 Active ibuprofen (MOTRIN) 600 MG tablet Take 1 (one) tablet by mouth every 6 hours as needed for Pain 60 tablet 04/26/2021 Active Family History Medical History Relation Name Comments Cancer - Breast Neg Hx Cancer - Colon Neg Hx Cancer - Ovarian Neg Hx Cancer - Uterine Neg Hx Social History Tobacco Use Types Packs/Day Years Used Date Smoking Tobacco: Never Smokeless Tobacco: Never Alcohol Use Standard Drinks/Week Comments Not Currently 0 (1 standard drink = 0.6 oz pur e alcohol) Comments No Sex and Gender Information Value Date Recorded Sex Assigned at Not on file Legal Sex Female 4:05 AM CIRCULAR SAW OPERATOR Gender Identity Not on file Sexual Orientation Not on file Last Filed Vital Signs Vital Sign Reading Time Taken Comments Blood Pressure 136/88 04/26/2021 1:48 PM CIRCULAR SAW OPERATOR Pulse 86 04/26/2021 1:48 PM CIRCULAR SAW OPERATOR Temperature 36.2 C (97.1 F) 04/26/2021 9:18 AM CIRCULAR SAW OPERATOR Respiratory Rate 17 04/26/2021 1:48 PM CIRCULAR SAW OPERATOR Oxygen Saturation 92% 04/26/2021 1:48 PM CIRCULAR SAW OPERATOR Inhaled Oxygen Concentration - - Weight 92 kg (202 lb 12.8 oz) 04/26/2021 6:22 AM CIRCULAR SAW OPERATOR Height 167.6 cm (5' 6 ) 04/26/2021 6:22 AM CIRCULAR SAW OPERATOR Body Mass Index 32.73 04/26/2021 6:22 AM CIRCULAR SAW OPERATOR Plan of Treatment Health Maintenance Due Date Last Done Comments LIPID TESTING 1981 MAMMOGRAM 1981 PAP SMEAR 1981 HEPATITIS C SCREENING 10/11/1999 DTAP/TDAP/TD VACCINES (1 - Tdap) 2000 HEPATITIS B VACCINE (1 of 3 - 19+ 3-dose series) 2000 SCREENING FOR DIABETES 06/19/2022 06/19/2019 COVID-19 VACCINE (1 - 2023-2 5 season) 2024 DEPRESSION SCREENING 05/05/2024 INFLUENZA VACCINE (Season Ended) 2025 02/08/20 17 ZOSTER VACCINE (1 of 2) 10/16/2031 HIV SCREENING Completed 12/13/2021 HIB VACCINE Aged Out No longer eligi ble based on patient's age to complete this topic HPV VACCINE Aged Out No longer eligi ble based on patient's age to complete this topic MENINGOCOCCAL (Group B) VACC INE SHARED DECISION-MAKING Aged Out No longer eligibl e based on patient's age to complete this topic MENINGOCOCCAL GROUPS A/C/Y/W VACCINE Aged Out No longer eligible b ased on patient's age to complete this topic PNEUMOCOCCAL VACCINE Aged Out No long er eligible based on patient's age to complete this topic Procedures Procedure Name Priority Date/Time Associated Diagnosis Comments COMPREHENSIVE METABOLIC PANEL STAT 06/19/2019 4:26 AM CIRCULAR SAW OPERATOR from Last 3 Months or Most Recently Relevant to Health Maintenance Results * (ABNORMAL) COMPREHENSIVE METABOLIC PANEL (06/19/2019 4:26 AM CIRCULAR SAW OPERATOR) BUN 5(L) 7 - 26 mg/dL 06/19/2019 4:54 AM [facility] Creatinine 0.7 0.6 - 1.2 mg/dL 06/19/2019 4:54 AM [facility] Sodium 142 136 - 145 mmol/L 06/19/2019 4:54 AM [facility] Potassium 3.7 3.5 - 4.5 mmol/L 06/19/2019 4:54 AM [facility] Chloride 107 98 - 107 mmol/L 06/19/2019 4:54 AM [facility] CO2 24 22 - 29 mmol/L 06/19/2019 4:54 AM [facility] Glucose 93 70 - 115 mg/dL 06/19/2019 4:54 AM [facility] Calcium 8.4 8.4 - 10.2 mg/dL 06/19/2019 4:54 AM [facility] Protein Total 6.7 6.0 - 8.3 g/dL 06/19/2019 4:54 AM [facility] Albumin 3.5 3.4 - 5.0 g/dL 06/19/2019 4:54 AM [facility] Bilirubin Total 0.2 0.2 - 1.2 mg/dL 06/19/2019 4:54 AM [facility] Alkaline Phosphatase 81 40 - 150 Units/L 06/19/2019 4:54 AM [facility] ALT 27 0 - 55 Units/L 06/19/2019 4:54 AM [facility] AST 21 5 - 34 Units/L 06/19/2019 4:54 AM [facility] Anion Gap 15 8 - 18 06/19/2019 4:54 AM [facility] BUN/Creatinine Ratio 7 7 - 23 06/19/2019 4:54 AM [facility] Osmolality Calculated 291 270 - 300 mOsm/kg 06/19/2019 4:54 AM [facility] Albumin/Globulin Ratio 1.1 1.1 - 2.3 06/19/2019 4:54 AM [facility] eGFR >60 >60 mL/min/1.7 3 m2 06/19/2019 4:54 AM [facility] Blood BLOOD SPECIMEN / Unknown Venipuncture / Unknown 06/19/2019 4:26 AM CIRCULAR SAW OPERATOR 06/19/2019 4:29 AM CIRCULAR SAW OPERATOR Lincoln Bradley MD LAB - CHEMISTRY [place] [address], [facility] [phone] from Last 3 Months or Most Recently Relevant to Health Maintenance Insurance MEDICAID - [place] [facility] MEDICAID [facility] SELF PAY NO INSURANCE Member Subscriber Plan / Payer (Ef fective for All Dates) Name:Cortney Chamorro Member ID:Not on file Relation to Subscriber:Not on file Name:CORTNEY ROQUE Subscriber ID:Not on file Address: [facility] [place] [address] Payer ID:Not on file Group ID:Not on file Type:Self Pay Address: [place], [place] [facility] SELF PAY NO INSURANCE Member Subscriber Plan / Payer (Ef fective for All Dates) Name:Cortney Chamorro Janet Member ID:Not on file Relation to Subscriber:Not on file Name:CORTNEY ROQUE Subscriber ID:Not on file Address: [address] [place] [address] Payer ID:Not on file Group ID:Not on file Type:Self Pay Address: [place], [place] SELF PAY NO INSURANCE Member Subscriber Plan / Payer (Ef fective for All Dates) Name:Pedro Pablo Cortney Gonzales Member ID:Not on file Relation to Subscriber:Not on file Name:CORTNEY ROQUE Subscriber ID:Not on file Address: [address] [place] [address] Payer ID:Not on file Group ID:Not on file Type:Self Pay Address: [place], [place] * Guarantor: CORTNEY CHAMORRO Account Type Relation to Patient Date of Phone Billing Address Personal/Family [address] [place] [address] SELF PAY NO INSURANCE Member Subscriber Plan / Payer (Ef fective for All Dates) Name:Cortney Chamorro Member ID:Not on file Relation to Subscriber:Not on file Name:CORTNEY CHAMORRO Subscriber ID:Not on file Address: [address] [place], [place] [id number] Payer ID:Not on file Group ID:Not on file Type:Self Pay Address: [place], [place] * Guarantor: CORTNEY CHAMORRO Account Type Relation to Patient Date of Phone Billing Address Personal/Family [address] [place], [place] [id number] [facility] Member Subscriber Plan / Payer (Ef fective for All Dates) Name:Cortney Chamorro Relation to Subscriber:Self Name:Cortney Chamorro Payer ID:[id number] (NAIC) Group ID:Not on file Type:Medicaid Managed Care Address: [place] [phone] SELF PAY NO INSURANCE Member Subscriber Plan / Payer (Ef fective for All Dates) Name:Pedro Pablo Cortney Gonzales Member ID:Not on file Relation to Subscriber:Not on file Name:CORTNEY CHAMORRO Subscriber ID:Not on file Address: [address] [place], [place] [id number] Payer ID:Not on file Group ID:Not on file Type:Self Pay Address: [place], [place] * Guarantor: CORTNEY CHAMORRO Account Type Relation to Patient Date of Phone Billing Address Personal/Family [address] [place] [address] [facility] SELF PAY NO INSURANCE Member Subscriber Plan / Payer (Ef fective for All Dates) Name:Cortney Chamorro Member ID:Not on file Relation to Subscriber:Not on file Name:CORTNEY CHAMORRO Subscriber ID:Not on file Address: [address] [place] [id number] Payer ID:Not on file Group ID:Not on file Type:Self Pay Address: [place], [place] [employer] Liability
[2024-09-20 11:20] VITALS: BP 140/85; PULSE 87; RESP 20; TEMP 36.4; O2SAT 100
--- NOTE | 2024-09-20 11:31 | ECG_ITS ---
Test Date: 2024-09-20 11:35:49 Measurements Intervals [place] Rate: 84 P: -2 IA: 140 QRS: 6 QRSD: 73 T: 11 QT: 346 QTc: 410 Interpretive Statements SINUS RHYTHM No previous ECG available for comparison Electronically Signed On 09-20-2024 12:27:49 CDT by Maycol Aguilera M.D.
[2024-09-20 11:52] LABS: Basophils Percent Auto 0.3 % (0.2-1.2); Eosinophils Absolute Auto 0.2 K/mm3 (0-0.3); Eosinophils Percent Auto 2.3 % (0-4.4); Hematocrit 42.9 % (37.0-47.0); Hemoglobin 13.7 g/dL (12.0-15.0); Immature Granulocyte Absolute 0.01 K/mm3 (0.00-0.031); Immature Granulocyte Percent A 0.1 % (0-0.5); Lymphocytes Absolute Auto 1.65 K/mm3 (0.9-3.2); Lymphocytes Percent Auto 21.5 % (18.3-44.2); Mean Corpuscular HGB Conc 31.9 g/dl (32-36); Mean Corpuscular Hemoglobin 27.3 pg (26-34); Mean Corpuscular Volume 85.6 fl (80-100); Monocytes Absolute Auto 0.6 K/mm3 (0.1-0.6); Monocytes Percent Auto 8.4 % (2.6-8.5); Neutrophils Absolute Auto 5.2 K/mm3 (1.3-6.7); Neutrophils Percent Auto 67.4 % (45.5-73.1); Platelet Count Result 172 k/mm3 (150-375); Red Blood Count 5.01 M/mm3 (4.2-5.4); Red Cell Distribution Width 13.7 % (11.5-14.5); White Blood Count 7.7 K/mm3 (4.5-10.0)
[2024-09-20 12:01] LABS: Alanine Aminotransferase 27 U/L (6-35); Albumin Level 4.3 g/dL (3.5-5.1); Alkaline Phosphatase 77 U/L (38-126); Anion Gap 7 mmol/L (4-12); Aspartate Amino Transferase 24 U/L (14-36); Bilirubin,Total 0.5 mg/dL (0.2-1.3); Blood Urea Nitrogen 13 mg/dL (7-17); Calcium 9.4 mg/dL (8.4-10.2); Carbon Dioxide 27 mmol/L (22-30); Chloride 105 mmol/L (98-107); Estimated CRCL calculation 83 ml/min; Estimated Glomerular Filt Rate > 60; Glucose 78 mg/dL (65-110); Potassium 3.9 mmol/L (3.4-5.0); Sodium 139 mmol/L (137-145)
--- OUTSIDE RECORDS SUMMARY | 2024-09-20 13:00 | XMS_ITS | Clinical Summary ---
Author Organization [facility] [employer] Address [address] [place] [address] Care Team Providers Care Geological Engineer Name Role Phone Unavailable Primary Care Provider Unavailabl e Source Comments [facility] [employer],non-owned Affiliates and Associated Physician Practices is amultiple site organization consisting of ambulatory clinics and hospital sitesin [place], [place], [place] and [place]. This disclosure is being madepursuant to the Care Everywhere program and may not contain all information available regarding this patient. Last updated 18.[facility] [employer] Allergies No known active allergies Medications * [...] on file Legal Sex Female 4:05 AM COOK RAILROAD Gender Identity Not on file Sexual Orientation Not on file Last Filed Vital Signs Vital Sign Reading Time Taken Comments Blood Pressure 136/88 04/26/2021 1:48 PM COOK RAILROAD Pulse 86 04/26/2021 1:48 PM COOK RAILROAD Temperature 36.2 C (97.1 F) 04/26/2021 9:18 AM COOK RAILROAD Respiratory Rate 17 04/26/2021 1:48 PM [employer] RAILROAD Oxygen Saturation 92% 04/26/2021 1:48 PM [employer] RA[employer]ROAD Inhaled Oxygen Concentration - - Weight 92 kg (202 lb 12.8 oz) 04/26/2021 6:22 AM COOK RAILROAD Height 167.6 cm (5' 6 ) 04/26/2021 6:22 AM [employer]RO[employer] Body Mass Index 32.73 04/26/2021 6:22 AM [employer] Plan of Treatment Health Maintenance Due Date [...] COMPREHENSIVE METABOLIC PANEL STAT 06/19/2019 4:26 AM COOK RAILROAD from Last 3 Months or Most Recently Relevant to Health Maintenance Results * (ABNORMAL) COMPREHENSIVE METABOLIC PANEL (06/19/2019 4:26 AM C[employer] RAILROAD) BUN 5(L) 7 - 26 mg/dL 06/19/2019 4:54 AM [facility] Creatinine 0.7 0.6 - 1.2 mg/dL 06/19/2019 4:54 AM [facility] Sodium 142 136 - 145 mmol/L 06/19/2019 4:54 AM [facility] Potassium 3.7 3.5 - 4.5 mmol/L 06/19/2019 4:54 AM [facility] Chloride 107 98 - 107 mmol/L 06/19/2019 4:54 AM [facility] CO2 24 22 - 29 mmol/L 06/19/2019 4:54 AM [facility] Glucose 93 70 - 115 mg/dL 06/19/2019 4:54 AM [facility] Calcium 8.4 8.4 - 10.2 mg/dL 06/19/2019 4:54 AM [facility] Protein Total 6.7 6.0 - 8.3 g/dL 06/19/2019 4:54 AM [facility] Albumin 3.5 3.4 - 5.0 g/dL 06/19/2019 4:54 AM [facility] Bilirubin Total 0.2 0.2 - 1.2 mg/dL 06/19/2019 4:54 AM [facility] Alkaline Phosphatase 81 40 - 150 Units/L 06/19/2019 4:54 AM [facility] ALT 27 0 - 55 Units/L 06/19/2019 4:54 AM [facility] AST 21 5 - 34 Units/L 06/19/2019 4:54 AM [facility] Anion Gap 15 8 - 18 06/19/2019 4:54 AM [facility] BUN/Creatinine Ratio 7 7 - 23 06/19/2019 4:54 AM [facility] Osmolality Calculated 291 270 - 300 mOsm/kg 06/19/2019 4:54 AM [facility] Albumin/Globulin Ratio 1.1 1.1 - 2.3 06/19/2019 4:54 AM [facility] eGFR >60 >60 mL/min/1.7 3 m2 06/19/2019 4:54 AM [facility] Blood BLOOD SPECIMEN / Unknown Venipuncture / Unknown 06/19/2019 4:26 AM [employer] 06/19/2019 4:29 AM [employer] Lincoln Bradley MD LAB - CHEMISTRY [place] [address], [facility] [phone] from Last 3 Months or Most Recently Relevant to Health Maintenance Insurance MEDICAID - [place] [facility] MEDICAID [facility] SELF PAY NO INSURANCE Member Subscriber Plan / Payer (Ef fective for All Dates) Name:Cortney Chamorro Member ID:Not on file Relation to Subscriber:Not on file Name:CORTNEY ROQUE Subscriber ID:Not on file Address: [address] [facility] [place] [address] Payer ID:Not on file Group ID:Not on file Type:Self Pay Address: [place], [place] [facility] SELF PAY NO INSURANCE Member Subscriber Plan / Payer (Ef fective for All Dates) Name:Cortney Chamorro Janet Member ID:Not on file Relation to Subscriber:Not on file Name:CORTNEY ROQUE Subscriber ID:Not on file Address: [address] [place] [address] Payer ID:Not on file Group ID:Not on file Type:Self Pay Address: [place], [place] SELF PAY NO INSURANCE Member Subscriber Plan / Payer (Ef fective for All Dates) Name:Pedro Pablo Cortney Gonzales Member ID:Not on file Relation to Subscriber:Not on file Name:CORTNEY ROQUE Subscriber ID:Not on file Address: [address] [place] [address] Payer ID:Not on file Group ID:Not on file Type:Self Pay Address: [place], [place] * Guarantor: CORTNEY CHAMORRO Account Type Relation to Patient Date of Phone Billing Address Personal/Family [address] [place] [address] SELF PAY NO INSURANCE Member Subscriber Plan / Payer (Ef fective for All Dates) Name:Cortney Chamorro Member ID:Not on file Relation to Subscriber:Not on file Name:CORTNEY CHAMORRO Subscriber ID:Not on file Address: [address] [place], [place] [id number] Payer ID:Not on file Group ID:Not on file Type:Self Pay Address: [place], [place] * Guarantor: CORTNEY CHAMORRO Account Type Relation to Patient Date of Phone Billing Address Personal/Family [address] [place], [place] [id number] [facility] Member Subscriber Plan / Payer (Ef fective for All Dates) Name:Cortney Chamorro Relation to Subscriber:Self Name:Cortney Chaomrro Payer ID:[id number] (NAIC) Group ID:Not on file Type:Medicaid Managed Care Address: [place] [phone] SELF PAY NO INSURANCE Member Subscriber Plan / Payer (Ef fective for All Dates) Name:Pedro Pablo Cortney Gonzales Member ID:Not on file Relation to Subscriber:Not on file Name:CORTNEY CHAMORRO Subscriber ID:Not on file Address: [address] [place], [place] [id number] Payer ID:Not on file Group ID:Not on file Type:Self Pay Address: [place], [place] * Guarantor: CORTNEY CHAMORRO Account Type Relation to Patient Date of Phone Billing Address Personal/Family [address] [place] [address] [facility] SELF PAY NO INSURANCE Member Subscriber Plan / Payer (Ef fective for All Dates) Name:Cortney Chamorro Member ID:Not on file Relation to Subscriber:Not on file Name:CORTNEY CHAMORRO Subscriber ID:Not on file Address: [address] [place] [phone] Payer ID:Not on file Group ID:Not on file Type:Self Pay Address: [place], [place] [employer] Liability
--- NOTE | 2024-09-20 13:17 | ED.GENADULT ---
HPI - General Adult General Chief complaint: Shortness of Breath/Dyspnea Stated complaint: cough Time Seen by Provider: 09/20/24 12:37 History of Present Illness HPI narrative: 43-year-old female presenting to the emergency department for evaluation for increased coughing fits that started yesterday. Patient denies any exacerbating events that causes. Patient denies any history of underlying lung disease and is not a smoker. Patient denies any recent concern for choking or aspiration. Related Data Home Medications Medication Instructions Recorded Confirmed Last Taken Type phentermine 37.5 mg tablet 37.5 mg PO DAILY 11/04/23 11/11/23 11/10/23 09:00 History Allergies Allergy/AdvReac Type Severity Reaction Status Date / Time No Known Allergies Allergy Unknown Verified 11/11/23 07:24 Review of Systems Review of Systems: All systems reviewed & are unremarkable except as noted in HPI and below PMFSH Past Medical History Medical History Hypertension affecting Hypothyroidism MORALES (obstructive sleep apnea) Overweight (BMI 25.0-29.9) Patient denies medical problems and not yet delivered Surgical History Surgical History History of cholecystectomy History of reversal of tubal ligation Hx of appendectomy Family History Family History Mother Cancer Father Chronic obstructive pulmonary disease Other Parents Social History Social History Smoking status: Never smoker Second hand tobacco smoke exposure: No Alcohol intake: never Substance use: never Substance use type: does not use Living arrangements: with family Gender identity (if verbalized by the patient): Female Sexual Orientation (if Verbalized by the Patient): Straight or Heterosexual Spiritual care concerns: No Exam Narrative: APPEARANCE: Uncomfortable due to cough HEAD: normocephalic, atraumatic. EYES: PERRLA/EOMI, conjunctivae clear. NOSE: Normal no drainage EARS:TMS clear with good light reflex. THROAT: Pharynx clear, no exudate. NECK: Supple. No adenopathy, no masses. RESPIRATORY: Airway patent, respirations nonlabored. Clear to auscultation bilaterally, no rales, rhonchi, wheezing. CARDIOVASCULAR: Regular rate and rhythm without murmurs rubs or gallops. ABDOMINAL: Soft, nontender, nondistended, normal bowel sounds MUSCULOSKELETAL: Moves all extremities. Strength/ROM intact, No edema, No calf tenderness. NEURO: Alert. Cranial nerves II through XII intact. Good gait. Good coordination SKIN: Warm, dry. Normal Color Course Vital Signs Vital signs: Vital Signs Temperature 97.6 F 09/20/24 10:32 Pulse Rate 87 09/20/24 10:32 Respiratory Rate 20 09/20/24 10:32 Blood Pressure 140/85 09/20/24 10:32 Pulse Oximetry 100 09/20/24 10:32 Oxygen Delivery Room Air 09/20/24 10:32 Temperature 97.6 F 09/20/24 11:20 Pulse Rate 89 09/20/24 13:54 Respiratory Rate 18 09/20/24 13:54 Blood Pressure 126/78 09/20/24 13:54 Pulse Oximetry 100 09/20/24 13:54 Oxygen Delivery Room Air 09/20/24 10:32 Medical Decision Making [facility] Narrative Medical decision making narrative: 43-year-old female presents emergency department for evaluation for increased coughing fits. Patient is currently afebrile with no leukocytosis hemoglobin of 13.7. Patient has no acute abnormalities on her CMP chest x-ray was negative for aspiration or acute pneumonia. Differential Diagnosis Differential Diagnosis: COVID, RSV influenza, pneumonia Vital Signs Vital Signs: Vital Signs Temperature 97.6 F 09/20/24 10:32 Pulse Rate 87 09/20/24 10:32 Respiratory Rate 09/20/24 10:32 Blood Pressure 140/85 09/20/24 10:32 Pulse Oximetry 100 09/20/24 10:32 Oxygen Delivery Room Air 09/20/24 10:32 Temperature 97.6 F 09/20/24 11:20 Pulse Rate 89 09/20/24 13:54 Respiratory Rate 18 09/20/24 13:54 Blood Pressure 126/78 09/20/24 13:54 Pulse Oximetry 100 09/20/24 13:54 Oxygen Delivery Room Air 09/20/24 10:32 Lab Data 09/20/24 11:43 09/20/24 11:43 Labs: Lab Results 09/20/24 09/20/24 Range/Units 11:43 13:25 WBC 7.7 (4.5-10.0) K/mm3 RBC 5.01 (4.2-5.4) M/mm3 Hgb 13.7 D (12.0-15.0) g/dL Hct 42.9 (37.0-47.0) % MCV 85.6 (80-100) fl MCH 27.3 (26-34) pg MCHC 31.9 L (32-36) g/dl RDW 13.7 (11.5-14.5) % Plt Count 172 (150-375) k/mm3 MPV 10.0 (7.4-10.4) fl Immature Gran % (Auto) 0.1 (0-0.5) % Neut % (Auto) 67.4 (45.5-73.1) % Lymph % (Auto) 21.5 (18.3-44.2) % Citrus % (Auto) 8.4 (2.6-8.5) % Eos % (Auto) 2.3 (0-4.4) % Baso % (Auto) 0.3 (0.2-1.2) % Lymph # (Auto) 1.65 (0.9-3.2) K/mm3 Citrus # (Auto) 0.6 (0.1-0.6) K/mm3 Eos # (Auto) 0.2 (0-0.3) K/mm3 Baso # (Auto) 0.0 (0.0-0.1) K/mm3 Abs Immat Gran (auto) 0.01 (0.00-0.031) K/mm3 Absolute Neuts (auto) 5.2 (1.3-6.7) K/mm3 Absolute Nucleated RBC 0.000 (0.0-0.012) K/mm3 Nucleated RBC % 0.0 (0.0-0.2) % Sodium 139 (137-145) mmol/L Potassium 3.9 (3.4-5.0) mmol/L Chloride 105 (98-107) mmol/L Carbon Dioxide 27 (22-30) mmol/L Anion Gap 7 (4-12) mmol/L BUN 13 (7-17) mg/dL Creatinine 0.83 (0.7-1.0) mg/dL Estim Creat Clear Calc 83 ml/min Estimated GFR > 60 (59 - ) Glucose 78 (65-110) mg/dL Calcium 9.4 (8.4-10.2) mg/dL Total Bilirubin 0.5 (0.2-1.3) mg/dL AST 24 (14-36) U/L ALT 27 (6-35) U/L Alkaline Phosphatase 77 (38-126) U/L Total Protein 7.0 (6.3-8.2) g/dL Albumin 4.3 (3.5-5.1) g/dL Influenza A (RT-PCR) Negative (Negative) Influenza B (RT-PCR) Negative (Negative) RSV (RT-PCR) Negative (Negative) SARS-CoV-2 RNA (RT-PCR) Negative (Negative) Discharge Plan Discharge Clinical Impression: Cough Patient Disposition: Home Condition: Stable Instructions: Antibiotic Form, Acute Bronchitis (ED) Additional Instructions: Albuterol and haler for cough. Tessalon Perles for additional cough symptoms. Have close follow-up with your primary care physician. If you have any worsening symptoms then please call or return to the emergency department. Patient Language: Lebanese Prescriptions: New benzonatate 100 mg capsule 100 mg PO TID PRN (Reason: cough) Qty: 14 0RF albuterol sulfate 90 mcg/actuation HFA aerosol inhaler 1 puff inhalation QID Qty: 6.7 0RF No Action phentermine 37.5 mg tablet 37.5 mg PO DAILY oxycodone-acetaminophen 5-325 mg tablet 1 tablet PO Q4H PRN (Reason: pain) Qty: 25 0RF Follow-up/Referrals: Martin,MD Ashlee [Primary Care Provider] -
[2024-09-20] MEDS: BENZONATATE 100 MG CAPSULE 200 MG PO (13:21)
[2024-09-20 13:54] VITALS: BP 126/78; PULSE 89; RESP 18; O2SAT 100
--- NOTE | 2024-09-20 14:10 | PC.NURSE ---
patient left prior to discharge. Patient states she had to pick her daughter up from school . This RN apologized to patient about wait time and explained risks of leaving without having all results back. patient states she has been here for 5 hours and has to leave. patient in no distress upon leaving department. patient ambulated out of department with steady gate. provide aware
--- NOTE | 2024-09-20 14:16 | PC.NURSE ---
Patient called and informed of prescriptions called in to pharmacy
[2024-09-20 14:17] LABS: Influenza A QL RT-PCR Negative (Negative); Influenza B QL RT-PCR Negative (Negative); RSV RNA, RT-PCR Negative (Negative); SARS-CoV-2 RNA PCR Negative (Negative)
== END 2024-09-20 14:21 | disposition home or self-care (01) ==
PROVIDERS: Student in an Organized Health Care Education/Training Program; Emergency Provider Emergency Medicine; PCP Internal Medicine
DX: R05.9 Cough, unspecified (principal); Z20.822 Contact with and (suspected) exposure to COVID-19; E03.9 Hypothyroidism, unspecified; E66.3 Overweight; Z68.31 Body mass index [BMI] 31.0-31.9, adult; G47.33 Obstructive sleep apnea (adult) (pediatric); Z90.49 Acquired absence of other specified parts of digestive tract
CPT/HCPCS: 36415; 71046; 80053; 85025; 87637; 93005; 99284; A9270